=== PATIENT | male | born 1935 | race Caucasian/White ===

== ENCOUNTER 2016-05-28 10:20 | Inpatient (IN) | payer OTHER, MEDICARE ==
[~2016-05-28] VITALS: Ht 161.3 cm; Wt 80.3 kg
[~2016-05-28 10:20] MED LIST: FLEXERIL10 MG PO; NAPROSYN375 MG PO; PANTOPRAZOLE SO40 M1 PO; SPIRIVA18 MCG IH; VICODIN5-300 PO
[2016-05-28] MEDS ORDERED: CARDIZEM CD240 M1 PO (10:27)
[2016-05-28] MEDS ORDERED: XARELTO15 M2 PO (10:27)
[2016-05-28] MEDS ORDERED: FINASTERIDE5 M1 PO (10:27)
[2016-05-28] MEDS ORDERED: TAMSULOSIN HCL0.4 M1 PO (10:28)
[2016-05-28] MEDS ORDERED: ATORVASTATIN CA40 M1 PO (10:28)
--- NOTE | 2016-05-28 10:36 | NUR ---
BIBA FROM HOME S/P SYNCOPAL EPISODE WHILE SITTING AT TABLE HAVING BREAKFAST. ON EMS ARRIVAL PT WAS AWAKE, ALERT, SPEAKING CLEARLY. HX AFIB,CVA PT ARRIVES TO ED AWAKE, ALERT, ORIENTED, DENIES CHEST PAIN OR DIZZINESS. MST AT BEDSIDE FOR EKG.
--- NOTE | 2016-05-28 10:42 | ED SYNCOPE COMPLAINT ---
History of Present Illness General Chief Complaint: Syncope and Near-Syncope Stated Complaint: BIBA FOR SYNCOPE Source: patient, family Exam Limitations: no limitations Vital Signs & Intake/Output Vital Signs & Intake/Output Vital Signs Date Time Temp Pulse Resp B/P Pulse O2 O2 Flow FiO2 Ox Delivery Rate 06/01 0953 98.1 74 18 130/62 06/01 0933 74 130/62 06/01 0843 98.1 74 18 130/62 93 Room Air 06/01 0800 Room Air 06/01 0006 98.3 64 18 142/70 94 Room Air 06/01 0000 94 Room Air 05/31 2226 97.8 70 20 118/60 94 Room Air 05/31 1623 97.7 68 18 130/63 95 05/31 1414 Room Air Room Air 05/31 1304 Room Air Room Air ED Intake and Output 06/01 0000 05/31 1200 Intake Total 1620 200 Output Total 550 450 Balance 1070 -250 Intake, IV 0 Intake, Oral 1620 200 Number 0 Bowel Movements Output, Urine 550 450 Allergies Coded Allergies: NO KNOWN ALLERGIES (09/28/10) Triage Note: BIBA FROM HOME S/P SYNCOPAL EPISODE WHILE SITTING AT TABLE HAVING BREAKFAST. ON EMS ARRIVAL PT WAS AWAKE, ALERT, SPEAKING CLEARLY. HX AFIB,CVA PT ARRIVES TO ED AWAKE, ALERT, ORIENTED, DENIES CHEST PAIN OR DIZZINESS. MST AT BEDSIDE FOR EKG. Triage Nurses Notes Reviewed? yes HPI: This patient is an 81-year-old male with a past medical history including atrial fibrillation, COPD, and, "mini stroke," who presented to the emergency department today brought in by ambulance accompanied by family member for evaluation of syncope. The patient's family member reported that he was sitting at the table with his nephew eating breakfast when he passed out 2 times. She is unaware of how long these episodes lasted as she was not there at the time of the incident. He did not fall or hit his head. The patient reported, "it was like a kind of fell asleep." The patient reported that he is having a mild occipital headache on the right side. He reported that his vision has seemed more blurry than normal over the last day. The patient denied any chest pain, difficulty breathing, dizziness, lightheadedness, palpitations, abdominal pain, nausea, vomiting, back pain, numbness or tingling in his extremities, jaw pain, arm pain, or any other associated symptoms. (CHENTE DICKERSON PA-C) Reconcile Medications Atorvastatin Calcium 40 MG TABLET 1 TAB PO QPM CHOLESTEROL (Reported) Diltiazem HCl (Cardizem Cd) 360 MG CAP.ER.24H 1 CAP PO DAILY HEART Finasteride 5 MG TABLET 1 TAB PO QPM PROSTATE (Reported) Pantoprazole Sodium 40 MG TABLET.DR 1 PO 0800 ACID REFLUX (Reported) Rivaroxaban (Xarelto) 15 MG TABLET 1 TAB PO QPM BLOOD THINNER (Reported) Tamsulosin HCl 0.4 MG CAP.ER.24H 2 CAP PO DAILY PROSTATE (Reported) Tiotropium Stanley (Spiriva) 18 MCG CAP.W.DEV 1 MCG IH BID COPD (Reported) (MARCELA HAHN,GALLO) Past History Travel History Traveled to [place] past 21 day No Medical History Any Pertinent Medical History? 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 No (CHENTE DICKERSON PA-C) Review of Systems Review of Systems Constitutional: Reports: no symptoms. EENTM: Reports: see HPI. Respiratory: Reports: no symptoms. Cardiovascular: Reports: no symptoms. GI: Reports: no symptoms. Genitourinary: Reports: no symptoms. Musculoskeletal: Reports: no symptoms. Skin: Reports: no symptoms. Neurological/Psychological: Reports: see HPI. All Other Systems: Reviewed and Negative (CHENTE DICKERSON PA-C) Physical Exam Physical Exam Cranial Nerves: normal hearing, normal speech, PERRL Comments: Well-developed well-nourished person in no acute distress HEENT: Normal EENT exam, head is normocephalic/atraumatic, moist mucous membranes, no tenderness to palpation over the scalp PERRLA bilaterally Neck: Supple, no lymphadenopathy Back: Normal inspection Cardiovascular: Regular rate and rhythm with no murmurs, rubs, or gallops Respiratory: Chest nontender. No respiratory distress. Breath sounds clear to auscultation bilaterally Abdomen: Soft, nontender and nondistended. No organomegaly Extremity: No edema, no calf tenderness to palpation, normal and equal pulses. Neuro: Alert oriented x3, motor sensory normal, cranial nerves II through XII grossly intact. No aphasia. Mild left-sided facial droop at the mouth. No unilateral weakness. No pronator drift Skin: No appreciable rash on exposed skin, skin is warm and dry. Psych: Mood and affect is normal Core Measures ACS in differential dx? Yes CVA/TIA Diagnosis: No Severe Sepsis Present: No Septic Shock Present: No (TUAN CONWAY,CHENTE) Progress Differential Diagnosis: AMI, aortic dissection, aortic valve, drug induced syncope, hyperventilation, orthostatic syncope, other valvular disease, pericardial tamponade, pulmonary embolus, seizure, sick sinus syndrome, subarachnoid hem., TIA/CVA, ATRIAL FIBRILLATION Plan of Care: Orders Procedure Date/time Status Discharge Patient 06/01 UNK Active Anticipated Discharge 05/31 UNK Active Current Medications Sig/Vicki Start time Last Medication Dose Stop Time Status Admin Albuterol Sulfate 2 PUF Q4 PRN 05/31 2130 AC (Ventolin) Diagnostic Imaging: Viewed by Me: CT Scan. Discussed w/RAD: CT Scan. Radiology Impression: PATIENT: DOLLY WIGGINS PRESENT AGE: 81 PATIENT ACCOUNT NO: [id number] : 34 LOCATION: [facility] ORDERING PHYSICIAN: CHENTE DICKERSON PA-C SERVICE DATE: 05/28/16 EXAM TYPE: CAT - CT HEAD WO IV CONTRAST EXAMINATION: CT HEAD WITHOUT CONTRAST CLINICAL INFORMATION: Syncope. COMPARISON: 09/28/2010 TECHNIQUE: Contiguous axial imaging was performed from the skull base to vertex without intravenous administration of contrast. DLP: 610 mGy-cm. FINDINGS: There is atherosclerotic calcification of the vertebral arteries and carotid siphons. There is chronic atrophy of cerebral and cerebellar hemispheres associated with symmetric prominence of ventricles, sulci and cisterns. There is chronic, patchy hypoattenuation within supratentorial white matter consistent with microangiopathy. The schulz-white matter differentiation is preserved. No evidence of an acute major vascular territory infarction, hemorrhage, focal mass effect or midline shift. Incidentally noted is mucosal thickening within the inferior left maxillary sinus with probable mucus retention cyst along the anteroinferior sinus wall. There is minimal mucosal thickening along the medial wall of the right maxillary sinus. Some of the bilateral mastoid air cells are chronically opacified. The temporomandibular joints are unremarkable. The orbits and globes are intact. There is chondrocalcinosis around the dens. IMPRESSION: Chronic cerebral atrophy and chronic small vessel ischemic changes. No acute intracranial pathology compared to 09/28/2010. 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 <Electronically signed in Other Vendor System> SIGNED BY: VIRGIE LOPEZ MD 05/28/16 1152 Initial ED EKG: normal axis, normal intervals, normal sinus rhythm, no ST T wave changes, 98 BPM Comments: 05/28/2016 10:58:30 AM: The patient's family member at the bedside and reported that he has had some slurred speech that has been worsening recently. She reported that his left-sided facial droop has been persistent since his prior stroke. EKG taken on route to the emergency department showed atrial fibrillation. However, this patient is in normal sinus rhythm here in the emergency department. 05/28/2016 12:18:33 PM: According to this patient's RN, the patient's nephew was at the bedside earlier and reported that he did not slump over, or pass out at the table, but rather was staring blankly and was unresponsive. EMS also reported that he had another episode of staring blankly and unresponsiveness en route to the hospital. Prolactin is elevated to 20. This patient does not have a history of any seizure disorder. This could possibly be a new onset seizure. Discussed this patient with Dr. Rodriguez. This patient will be admitted to the hospital. Neurology has been paged. Officially signed out to Dr. Rodriguez for telemetry admission. 05/28/2016 1:40:46 PM: Discussed this patient with on-call neurologist, Dr. BUSTILLO. Is in agreement with the plan for a telemetry admission. Will consult on this patient. (TUAN CONWAY,CHENTE) Departure Departure Disposition: STILL A PATIENT Condition: Stable Clinical Impression Primary Impression: New onset seizure Referrals: KENDAL HAHN,DOLLY Montgomery (PCP/Family) Departure Forms: Customer Survey General Discharge Information Admission Note Spoke With: MARQUEZ OLIVAREZ MD Documentation of Exam: Documentation of any treatments & extenuating circumstances including Concerns Regarding Discharge (functional status, medication knowledge or non-compliance, living conditions, etc.) that warrant an admission rather than observation: [ This patient is an 81 year old male with a past medical history including atrial fibrillation and CVA who presented for evaluation of multiple episodes of unresponsiveness. Prolactin elevated to 20. Likely new onset seizure. He will need to be admitted to telemetry for MRI of the brain, EEG, trend labs, telemetry monitoring, neurology consultation, IV fluids, and close monitoring. Given this patient's age and medical history, premature discharge could prove medically harmful. This patieht is a poor candidate for outpatient treatment. ] (CHENTE DICKERSON PA-C) Departure Prescriptions: Current Visit Scripts Diltiazem HCl (Cardizem Cd) 1 CAP PO DAILY #30 CAP PA/CARPENTER'S HELPER Co-Sign Statement Statement: ED Attending supervision documentation- [x] I saw and evaluated the patient. I have also reviewed all the pertinent lab results and diagnostic results. I agree with the findings and the plan of care as documented in the PA's/CARPENTER'S HELPER's documentation. [x] I have reviewed the ED Record and agree with the PA's/CARPENTER'S HELPER's documentation. [] Additions or exceptions (if any) to the PAs/CARPENTER'S HELPER's note and plan are summarized below: [] (GALLO RODRIGUEZ MD) Given this patient's age and medical history, premature discharge could prove medically harmful. This patieht is a poor candidate for outpatient treatment. ] (CHENTE DICKERSON PA-C) PA/CARPENTER'S HELPER Co-Sign Statement Statement: ED Attending supervision documentation- [x] I saw and evaluated the patient. I have also reviewed all the pertinent lab results and diagnostic results. I agree with the findings and the plan of care as documented in the PA's/CARPENTER'S HELPER's documentation. [x] I have reviewed the ED Record and agree with the PA's/CARPENTER'S HELPER's documentation. [] Additions or exceptions (if any) to the PAs/CARPENTER'S HELPER's note and plan are summarized below: [] (GALLO RODRIGUEZ MD)
[2016-05-28 11:01] LABS: ABSOLUTE BASOPHIL COUNT 0 /CUMM (0.0-0.2); ABSOLUTE EOSINOPHIL COUNT 0 /CUMM (0.0-0.7); ABSOLUTE GRANULOCYTE CT 4.5 /CUMM (1.4-6.5); ABSOLUTE MONOCYTE COUNT 0.4 /CUMM (0.10-0.60); BASOPHIL % 0.3 % (0.0-2.0); EOSINOPHIL % 0.8 % (0-5); GRANULOCYTE % 75.9 % (42.2-75.2); HEMATOCRIT 36.1 % (42-52); MEAN CORPUSCULAR VOLUME 85.3 FL (80.0-94.0); MEAN PLATELET VOLUME 6.9 FL (7.4-10.4); PLATELET COUNT 170 /CUMM (130-400); RBC DISTRIBUTION WIDTH 15.2 % (11.5-14.5); RED BLOOD CELL CT 4.23 /CUMM (4.70-6.10); WHITE BLOOD CELL COUNT 5.9 /CUMM (4.8-10.8)
--- NOTE | 2016-05-28 11:07 | NUR ---
PT UNABLE TO VOID VIA URINAL AT PRESENT. IVF'S NS 1L BOLUS INFUSING ORDERED. GRAND DAUGHTER AT BEDSIDE.
[2016-05-28 11:15] LABS: PT 13.7 SEC (9.4-12.5); PTT 34 SEC (25-37)
--- NOTE | 2016-05-28 11:17 | NUR ---
PT TO CT VIA STRETCHER AT THIS TIME.
--- NOTE | 2016-05-28 11:52 | CT SCAN REPORT ---
EXAMINATION: CT HEAD WITHOUT CONTRAST CLINICAL INFORMATION: Syncope. COMPARISON: 09/28/2010 TECHNIQUE: Contiguous axial imaging was performed from the skull base to vertex without intravenous administration of contrast. DLP: 610 mGy-cm. FINDINGS: There is atherosclerotic calcification of the vertebral arteries and carotid siphons. There is chronic atrophy of cerebral and cerebellar hemispheres associated with symmetric prominence of ventricles, sulci and cisterns. There is chronic, patchy hypoattenuation within supratentorial white matter consistent with microangiopathy. The schulz-white matter differentiation is preserved. No evidence of an acute major vascular territory infarction, hemorrhage, focal mass effect or midline shift. Incidentally noted is mucosal thickening within the inferior left maxillary sinus with probable mucus retention cyst along the anteroinferior sinus wall. There is minimal mucosal thickening along the medial wall of the right maxillary sinus. Some of the bilateral mastoid air cells are chronically opacified. The temporomandibular joints are unremarkable. The orbits and globes are intact. There is chondrocalcinosis around the dens. IMPRESSION: Chronic cerebral atrophy and chronic small vessel ischemic changes. No acute intracranial pathology compared to 09/28/2010.
--- NOTE | 2016-05-28 12:58 | NUR ---
URINE TRIO SENT TO LAB
--- NOTE | 2016-05-28 13:33 | History & Physical ---
DARIAN HAHN,MANDA 05/28/16 1333: General Information and HPI Source of Information: patient, family, old records Exam Limitations: no limitations History of Present Illness: Patient is an 81 year old male with a past medical history of atrial fibrillation on Xeralto and cardizem now in NSR,HTN, HL, COPD not on home oxygen , Hx of CVA (2010) presented in emergency department for 2 episodes of witnessed syncope. According to him, there was periods of amnesia when he was taking his breakfast. He don't know exactly for how long they lasted, but he recovered fast. He denies of any loss of memory, weakness of any part of his body after this episode. According to the patient his cousin was there when he had these episodes.Cousin said that there was just episode of black out, denies any fall, trauma, unusal body movements. Patient Claims that he is having headaches since last 2 days, especially when he woke up in the morning.His daughter feels his speech become more slurred and his facial assymetry has been increased since last 1 week. Also, patient says that he is having more drooling of his saliva since last 1 week.He denies difficulty in swallowing. He denies of palpitation, body movements, changes in vision,fever, nausea, vomiting, chest pain, abdominal pain, incontinence of the urine and stool. He has PMH of stroke (2012), and Mini Stroke in 2013. Personal history -patient lives alone and able to do all his household activities. He denies smoking and using alcohol. He is compliant with his medication. His block making machine operator is Dr. Chan,and director of food and beverage services is Dr. Lou. Allergies/Medications Allergies: Coded Allergies: NO KNOWN ALLERGIES (09/28/10) Home Med list Atorvastatin Calcium 40 MG TABLET 1 TAB PO QPM CHOLESTEROL (Reported) Diltiazem HCl (Cardizem Cd) 240 MG CAP.ER.24H 1 CAP PO DAILY HEART (Reported) Finasteride 5 MG TABLET 1 TAB PO QPM PROSTATE (Reported) Pantoprazole Sodium 40 MG TABLET.DR 1 PO 0800 ACID REFLUX (Reported) Rivaroxaban (Xarelto) 15 MG TABLET 1 TAB PO QPM BLOOD THINNER (Reported) Tamsulosin HCl 0.4 MG CAP.ER.24H 2 CAP PO DAILY PROSTATE (Reported) Tiotropium [place] (Spiriva) 18 MCG CAP.W.DEV 1 MCG IH BID COPD (Reported) Past History Travel History Traveled to [place] past 21 day No Medical History Neurological: TIA EENT: NONE Cardiovascular: hypertension, hyperlipidemia Respiratory: COPD Gastrointestinal: NONE Hepatic: NONE Renal: ENLARGED PROSTATE Musculoskeletal: NONE Psychiatric: NONE Endocrine: NONE Blood Disorders: NONE Cancer(s): NONE [employer] 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 Cardiovascular: Denies: chest pain, edema, orthopena, palpitations, peripheral edema. Respiratory: Denies: cough, hemoptysis, orthopnea, short of breath, sputum production. GI: Denies: abdominal pain, bloating, constipation, diarrhea, distention. Genitourinary: Reports: nocturia. Denies: discharge, dysuria, frequency, hematuria. Musculoskeletal: Denies: back pain, gout, joint pain, joint swelling, muscle pain. Skin: Denies: no symptoms. Neurological/Psychological: Reports: headache, weakness. Denies: anxiety, ataxia. Exam & Diagnostic Data Last 24 Hrs of Vital Signs/I&O Vital Signs Date Time Temp Pulse Resp B/P Pulse O2 O2 Flow FiO2 Ox Delivery Rate 05/28 1038 97 Room Air Room Air 05/28 1037 97.1 97 20 119/59 97 Room Air Room Air Intake & Output 05/28 1600 05/28 0800 05/28 0000 Intake Total 1000 Output Total Balance 1000 Intake, IV 1000 Patient 80.286 kg Weight Physical Exam General Appearance Alert, Oriented X3, Cooperative, No Acute Distress Skin No Rashes, No Breakdown HEENT Atraumatic, PERRLA, EOMI Neck Supple, No JVD Cardiovascular Regular Rate, Normal S1, Normal S2 Lungs decrease air entry bilateraly, bilateral basilar crackles Abdomen Soft, distended, bowel soundes positive Neurological speech is slurred, strength is 5/5 on right upper limb and lower limb and 4 /5 on left upper limb and lower limb.there is facial asymmetry,left side Extremities No Clubbing, No Cyanosis, No Edema Vascular Normal Pulses, Pulses Symmetrical Assessment/Plan Assessment: Patient is an 81 year old male with a past medical history of atrial fibrillation on Xeralto and cardizem now in NSR,HTN, HL, COPD not on home oxygen , Hx of CVA,mini stroke, presented in emergency department for recurrent episodes of witnessed syncope. Vital signs at the time of admission - Temperature 97.1, pulse 97, respiration 20, blood pressure 119/59, pulse 97, SPO2 CT head 05/28/2016 Chronic cerebral atrophy and chronic small vessel ischemic changes.No acute intracranial pathology compared to 09/28/2010. Pertinent labs creatinine 1.4 Assessment and plan - Patient had episodes of loss of consciousness/syncope. He denies of any episodes of palpitations, headache , nausea , vomiting, blurry vision before syncope. She doesn't seems it is vasovagal. The patient having history of atrial fibrillation , was on Eliquis in need to rule out arrhythmia. So we will keep the patient in telemetry for observation of his heart rhythm. Patient is also having history of stroke and he is a also having risk factor for stroke including hypertension and hyperlipidemia, so that our chances he may have stroke which is supported by history given by the patients daughter that he is having increasing severity of speech difficulty and facial drooping. We will do MRI to rule out the stroke and place a neurological consult for further evaluation and management. Syncope Regions under evaluation (? Seizures ? arrythmias) * We will admit in the Telemetry * Neuro check every Q1 * We will place a consult for cardiology to rule out arrhythmia and neurologic to rule out any stroke/seizure * We will do echocardiogram to know the left ventricular function * We will do MRI brain to rule out stroke * Strict intake output charting * Orthostatic vitals every 24 * Vitals every shift * We will do bedside formal swallow evaluation. * We will also take the mobile number of the cousin to know the exact history in the detail as he witnessed to the episode * PT/OT/ST Atrial fibrillation on Xeralto * We will continue Xeralto COPD * We will continue Spiriva as before * We will keep the patient on oxygen with the target of SPO2 more than 92% * TRC/nebulization Hypertension * We'll continue Cardizem as before Hyperlipidemia * We will continue statins as before BPH - * We'll continue Flomax and finasteride Diet -heart healthy diet CODE STATUS -full code DVT prophylaxis-ALP S/Xeralto As Ranked By This Provider Problem List: 1. Syncope 2. Atrial fibrillation 3. COPD (chronic obstructive pulmonary disease) 4. Hypertension 5. Hyperlipidemia 6. BPH (benign prostatic hyperplasia) Core Measures/Miscellaneous Acute Coronary Syndrome ACS Diagnosis: No Cerebrovascular Accident CVA/TIA Diagnosis: No Congestive Heart Failure CHF Diagnosis: No Venous Thromboembolism VTE Risk Factors: Age > 40 VTE Prophylaxis Ordered Inpt: Pharm- Xarelto No Mech VTE prophylaxis d/t: No contraindications No VTE Pharm Prophylaxis d/t: No contraindications VTE Diagnosis: No VTE Type: NONE VTE Confirmed by (Test): NONE Severe Sepsis Severe Sepsis Present: No Septic Shock Septic Shock Present: No Miscellaneous Documentation Attending Case Discussed With: JADA HAHN,MARINE Valiente Primary Care Physician: DOLLY EDMONDS MD Patient sees these Specialists Assistant Manager/Embalmer Level of Patient Care: Telemetry JARROD HAHN,LENCHO 05/28/16 1445: Resident Review Statement Resident Statement: examined this patient, discussed with administration intern, agreed with administration intern Other Findings: 81 year old male with a PMH of Afib on Xarelto, 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 These were witnessed by a cousin, who could not be reached. No reports of involuntary movements, staring into space, loss of bowel or bladder control, confusion or weakness after the episode. No similar episodes in the past. No recent infections, abdominal pain, bowel or bladder issues. Per daughter, his speech was more slurred and his facial droop was more pronounced than baseline. Physical Exam: Revealed a left sided facial droop with preserved motor strength and sensation. Vitals: WNL, EKG showed NSR at 86 bpm. Labs: Showed elevated creatinine 1.4 (b/l 1.2-1.5), Prolactin: 20.5, U/A: WNL Assessment: 81 y/o male with a PMH of 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 No urinary or bowel incontinence, involuntary movements, frothing, weakness or confusion noted. This is possibly secondary to arrhythmia considering no aura or post ictal events. He does have a more pronounced facial droop per family along with increased slurring of speech. Ischemic stroke will have to ruled out considering his history of CVA in the past. Also to consider, would be compliance with medications, as this episode, if a stroke, has occured on Xarelto. Problem List: * Syncope 2/2 arrhythmia vs ?? seizure * R/O Stroke considering increased slurring of speech and facial droop * Atrial Fibrillation on Cardizem and Xarelto * COPD not on home oxygen * BPH of Flomax and Finasteride * Hypertension * Hyperlipidemia on Atorvastatin Plan: * Admit to telemetry * Check orthostatics * Seizure precautions * MRI to r/o ischemic stroke * ECHO * Cardiology consult for arrhythmia * Neurology consult for possible seizures. * Continue other home medications. * DVT PPx: Xarelto * Code Status: Full Code * Pain Pathway: Tylenol PRN. JADA HAHN,MARINE 05/28/16 1540: Attending MD Review Statement Attending Statement Attending MD Statement: examined this patient, discuss w/resident/PA/RATE SETTER, agreed w/resident/PA/RATE SETTER, reviewed EMR data (avail), discussed with nursing, discussed with case mgmt Attending Assessment/Plan: 81-year-old male with past medical history of COPD, hypertension, BPH and A. fib on Xarelto. He is here with episodes of syncope of unclear etiology. I'm not convinced that the seizure as there is no history of confusion, postictal stage, incontinence and his prolactin is very borderline. Obviously a stroke is in the differential and will get an MRI because if he has a stroke on Xarelto we have have to consider him a Xarelto failure and probably switch him to Coumadin. We' ll get an echocardiogram and talk to his block making machine operator about the most recent echo. Continue his Cardizem and Xarelto, continue his BPH meds, check orthostasis and neurology eval.
--- NOTE | 2016-05-28 14:31 | NUR ---
LABS DRAWN AND SENT MINOR
--- NOTE | 2016-05-28 14:45 | NUR ---
PT TO MRI VIA STRETCHER AT THIS TIME. REPORT CALLED TO TELE NURSE
--- NOTE | 2016-05-28 15:40 | Admission Certification ---
Admission Certification Certification Statement - As attending physician, I certify that at the time of - admission, based on clinical presentation, severity of - symptoms, need for further diagnostic testing and - therapeutic interventions, and risk of adverse outcomes - without in-hospital treatment, in my clinical assessment, - this patient requires an acute hospital stay for a minimum - of two nights or longer. I have also considered psychsocial - factors such as support system, advanced age, financial - issues, cognitive issues, and failed out-patient treatments, - past re-admission history, safety of patient, and lack of - compliance as applicable. Specific rationale supporting this admission is: Syncope versus seizure in patient with A. fib on Xarelto.
--- NOTE | 2016-05-28 17:09 | MRI REPORT ---
EXAMINATION: MR BRAIN WITHOUT CONTRAST CLINICAL INFORMATION: Worsening baseline facial droop and increased slurring. COMPARISON: CT scan of the head 05/28/2016. TECHNIQUE: MRI of the brain without contrast was obtained using routine sequences. FINDINGS: There are numerous foci of T2 FLAIR signal hyperintensity throughout the periventricular white matter and koffi that most likely represent a chronic manifestation of small vessel ischemia. There is no acute territorial infarct. There is magnetic susceptibility artifact within the subcortical white matter of the right frontal lobe along the expected course of an old right frontal lobe catheter tract. Intracranial vascular flow voids including the major dural venous sinuses are preserved. There is no intracranial mass effect or midline shift. No abnormal extra axial collection. Lateral and third ventricles are prominent and there is proportionate prominence of the subarachnoid spaces reflecting a mild degree of global parenchymal volume loss. Midline structures including the cervicomedullary junction are normal. Bone marrow signal intensity is normal. Old rola holes within both parietal bones are noted. There is a small left mastoid tip effusion and mild paranasal sinus disease primarily affecting the ethmoid air cells and left maxillary sinus. Globes and orbits are symmetric. IMPRESSION: There is mild global parenchymal volume loss and numerous chronic small vessel ischemic changes throughout the periventricular white matter and koffi. No evidence of acute territorial infarct or hemorrhage.
[2016-05-28 17:30] VITALS: BP 176/84
[2016-05-28 23:48] VITALS: BP 130/84
--- NOTE | 2016-05-29 07:55 | PN- Housestaff ---
HORACIO HAHN,[facility] 05/29/16 0755: Subjective Follow-up For: Syncope Subjective: Patient seen and examined. He was lying comfortably in bed in no acute distress , he did not have any complaints of dizziness, chest pain, palpitation. He is afebrile, other vitals within normal limits. Review of Systems Constitutional: Reports: see HPI. Objective Last 24 Hrs of Vital Signs/I&O Vital Signs Date Time Temp Pulse Resp B/P Pulse O2 O2 Flow FiO2 Ox Delivery Rate 05/29 1031 118/58 05/29 0845 97.7 68 16 118/58 95 Room Air 05/29 0000 96 Room Air 05/28 2348 97.6 85 20 130/84 95 Room Air 05/28 1930 Room Air 05/28 1730 97.5 79 20 176/84 96 Room Air Intake & Output 05/29 1600 05/29 0800 05/29 0000 Intake Total 100 610 Output Total 400 300 Balance -300 310 Intake, IV 10 Intake, Oral 100 600 Output, Urine 400 300 Patient 80.286 kg Weight Physical Exam General Appearance: Alert, Oriented X3, Cooperative Cardiovascular: Regular Rate, Normal S1, Normal S2 Lungs: decrease air entry bilaterally. Abdomen: Normal Bowel Sounds, Soft, No Tenderness Neurological: slurred speech, left-sided facial asymmetry home a strength in both upper and lower extremities 5 out 5. Extremities: No Clubbing, No Cyanosis, No Edema Current Medications: Current Medications Sig/Vicki Start time Last Medication Dose Route Stop Time Status Admin Acetaminophen 650 MG Q6P PRN 05/28 1430 AC 05/28 PO 1916 Atorvastatin Calcium 40 MG QPM 05/28 2200 AC 05/28 PO 2050 Diltiazem HCl 240 MG DAILY 05/28 1430 AC 05/29 PO 1031 Finasteride 5 MG QPM 05/28 2200 AC 05/28 PO 2050 Rivaroxaban 15 MG QPM 05/28 2200 AC 05/28 PO 205 Sodium Chloride 1,000 ML BOLUS ONE 05/28 1045 DC 05/28 IV 05/28 1244 1054 Tamsulosin HCl 0.8 MG DAILY 05/29 1000 AC 05/29 PO 1031 Tiotropium [place] 1 PUF BID 05/28 2200 AC 05/29 INH 1030 Last 24 Hrs of Lab/Keanu Results Last 24 Hrs of Labs/Mics: Laboratory Tests 05/29/16 0730: Anion Gap 9, Estimated GFR > 60, BUN/Creatinine Ratio 23.6, CBC w Diff NO MAN DIFF REQ, RBC 3.85 L, MCV 87.0, MCH 29.2, RDW 15.2 H, MPV 7.5, Gran % 62.3, Lymphocytes % 27.0, Monocytes % 8.6, Eosinophils % 1.6, Basophils % 0.5, Absolute Granulocytes 4.2, Absolute Lymphocytes 1.8, Absolute Monocytes 0.6, Absolute Eosinophils 0.1, Absolute Basophils 0, PUBS MCHC 33.5 05/28/16 1430: Lactic Acid 0.9 05/28/16 1256: Urine Color YEL, Urine Clarity CLEAR, Urine pH 6.0, Ur Specific [place] 1.020, Urine Protein NEG, Urine Ketones NEG, Urine Nitrite NEG, Urine Bilirubin NEG, Urine Urobilinogen 0.2, Ur Leukocyte Esterase NEG, Ur Microscopic EXAM NOT REQUIRED, Urine Hemoglobin NEG, Urine Glucose NEG Microbiology 05/28 1256 URINE ROUT: Urine Culture - RES Assessment/Plan Assessment: 81 y/o male with a PMH of 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 No urinary or bowel incontinence, involuntary movements, frothing, weakness or confusion noted. This is possibly secondary to arrhythmia considering no aura or post ictal events. He does have a more pronounced facial droop per family along with increased slurring of speech. Ischemic stroke will have to ruled out considering his history of CVA in the past. Also to consider, would be compliance with medications, as this episode, if a stroke, has occured on Xarelto. Problem List: * Syncope 2/2 arrhythmia vs ?? seizure * R/O Stroke considering increased slurring of speech and facial droop * Atrial Fibrillation on Cardizem and Xarelto * COPD not on home oxygen * BPH of Flomax and Finasteride * Hypertension * Hyperlipidemia on Atorvastatin Plan: * Continuous. Monitoring for any arrhythmias * orthostatics positive * Seizure precautions * MRI not show any acute intracranial pathology * ECHO pending * Cardiology consult for arrhythmia, will follow-up with medications. * Neurology consult for possible seizures, will follow-up with medications. * Continue other home medications. * DVT PPx: Xarelto * Code Status: Full Code * Pain Pathway: Tylenol PRN. Problem List: 1. Hyperlipidemia 2. Hypertension 3. COPD (chronic obstructive pulmonary disease) 4. Syncope 5. Atrial fibrillation Pain Ratin Pain Location: none Pain Goal: Remain pain free Pain Plan: Tylenol Tomorrow's Labs & Rationales: cBC for WBC monitoring BeP creatinine monitoring. MARQUEZ OLIVAREZ MD 05/29/16 1531: Attending MD Review Statement Attending Statement Attending MD Statement: examined this patient, discuss w/resident/PA/ACC[employer], agreed w/resident/PA/[employer], reviewed EMR data (avail) Attending Assessment/Plan: Admitted for witnessed syncope x2. Patient has no complaints today and feels well. He had no problem rising from a seated position and denies lightheadedness, chest pain, or palpitations. No tele events. MRI negative. Will follow up neurology and cardiology recommendations, follow up echocardiogram and telemetry, possible EEG Tuesday, PT eval, DVT PPx, continue home medications.
[2016-05-29 08:45] VITALS: BP 118/58
[2016-05-29 09:16] LABS: ABSOLUTE BASOPHIL COUNT 0 /CUMM (0.0-0.2); ABSOLUTE EOSINOPHIL COUNT 0.1 /CUMM (0.0-0.7); ABSOLUTE GRANULOCYTE CT 4.2 /CUMM (1.4-6.5); ABSOLUTE LYMPH COUNT 1.8 /CUMM (1.2-3.4); ABSOLUTE MONOCYTE COUNT 0.6 /CUMM (0.10-0.60); BASOPHIL % 0.5 % (0.0-2.0); EOSINOPHIL % 1.6 % (0-5); GRANULOCYTE % 62.3 % (42.2-75.2); HEMATOCRIT 33.5 % (42-52); MEAN CORPUSCULAR HGB 29.2 PG (27.0-31.0); MEAN CORPUSCULAR HGB CONC 33.5 G/DL (33.0-37.0); MEAN PLATELET VOLUME 7.5 FL (7.4-10.4); PLATELET COUNT 168 /CUMM (130-400); RBC DISTRIBUTION WIDTH 15.2 % (11.5-14.5); RED BLOOD CELL CT 3.85 /CUMM (4.70-6.10); WHITE BLOOD CELL COUNT 6.7 /CUMM (4.8-10.8)
--- NOTE | 2016-05-29 13:41 | Cons- Cardiology ---
General Information and HPI Consulting Request Date of Consult: 05/29/16 Requested By: MARINE ELIAS MD Reason for Consult: Loss of consciousness, syncope versus seizure Source of Information: patient, old records Exam Limitations: no limitations History of Present Illness: The patient is an 81-year-old male. He has a past medical history of atrial fibrillation, on anticoagulant therapy. He has been in sinus rhythm. He also has a history of hypertension, hyperlipidemia, COPD, and a prior stroke in the past. The patient is now admitted to the hospital. The emergency room after 2- 3 episodes of witnessed syncope. According to the patient, he does not recall the episodes. However, his cousin was apparently there are during the episodes and notes that the patient transiently blacked out with no evidence of any fall, trauma, or unusual body activity to suggest seizures. The patient apparently also notes a history of recent headaches over the last several days. Per the records, the patient's daughter also apparently noted some slurred speech and facial asymmetry over the last week. The patient denies any other cardiovascular symptoms. He denies any palpitations, dizziness, chest pain or shortness of breath. Allergies/Medications Allergies: Coded Allergies: NO KNOWN ALLERGIES (09/28/10) Home Med List: Atorvastatin Calcium 40 MG TABLET 1 TAB PO QPM CHOLESTEROL (Reported) Diltiazem HCl (Cardizem Cd) 240 MG CAP.ER.24H 1 CAP PO DAILY HEART (Reported) Finasteride 5 MG TABLET 1 TAB PO QPM PROSTATE (Reported) Pantoprazole Sodium 40 MG TABLET.DR 1 PO 0800 ACID REFLUX (Reported) Rivaroxaban (Xarelto) 15 MG TABLET 1 TAB PO QPM BLOOD THINNER (Reported) Tamsulosin HCl 0.4 MG CAP.ER.24H 2 CAP PO DAILY PROSTATE (Reported) Tiotropium [place] (Spiriva) 18 MCG CAP.W.DEV 1 MCG IH BID COPD (Reported) Current Medications: Current Medications Sig/Vicki Start time Last Medication Dose Route Stop Time Status Admin Acetaminophen 650 MG Q6P PRN 05/28 1430 AC 05/28 PO 191 Atorvastatin Calcium 40 MG QPM 05/280 AC 05/28 PO 2050 Diltiazem HCl 240 MG DAILY 05/28 1430 AC 05/29 PO 103 Finasteride 5 MG QPM 05/28 2199 AC 05/28 PO 2051 Rivaroxaban 15 MG QPM 05/28 2199 AC 05/28 PO 2050 Tamsulosin HCl 0.8 MG DAILY 05/29 1000 AC 05/29 PO 1031 Tiotropium [place] 1 PUF BID 05/28 2199 AC 05/29 INH 1030 Past History Travel History Traveled to [place] past 21 day No Medical History Blood Transfusion Hx: No Neurological: TIA, BRAIN DETATCHED FROM [facility] EENT: NONE Cardiovascular: AFIB, hypertension, hyperlipidemia Respiratory: COPD Gastrointestinal: NONE Hepatic: NONE Renal: ENLARGED PROSTATE Musculoskeletal: NONE Psychiatric: NONE Endocrine: NONE Blood Disorders: NONE Cancer(s): 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 Home Services at Home: None Smoking Status: Former Smoker ETOH Use: denies use Illicit Drug Use: denies illicit drug use ECHO Results (as available) Date of last Echo 08/06/13 EF% 60 Report: CONCLUSIONS Normal left ventricular ejection fraction estimated at 55-60%. Abnormal relaxation filling pattern of the left ventricle for age (stage 1 diastolic dysfunction). Diffuse thickening (sclerosis) of the aortic valve cusps without reduced excursion. Trace to mild tricuspid regurgitation. RVSP 30-40 mmHg. Exam & Diagnostic Data Vital Signs and I&O Vital Signs Date Time Temp Pulse Resp B/P Pulse O2 O2 Flow FiO2 Ox Delivery Rate 05/29 1031 118/58 05/29 0845 97.7 68 16 118/58 95 Room Air 05/29 0000 96 Room Air 05/28 2348 97.6 85 20 130/84 95 Room Air 05/28 1930 Room Air 05/28 1730 97.5 79 20 176/84 96 Room Air Intake & Output 05/29 1600 05/29 0800 05/29 0000 05/28 1600 05/28 0800 05/28 0000 Intake Total 585 954 5511 Output Total 400 300 Balance -949 463 0204 Intake, IV 10 1000 Intake, Oral 100 600 Output, Urine 400 300 Patient 177 lb 177 lb Weight Physical Exam: General Appearance Alert, Oriented X3, Cooperative, No Acute Distress, vital signs stable Skin normal HEENT normal Neck Supple, JVP normal, carotid upstroke 2+ bilaterally. No bruits. No masses. No thyromegaly. Cardiovascular Regular Rate, Normal S1, Normal S2 1/6 systolic murmur left sternal border Lungs scattered bilateral rhonchi Abdomen Soft, distended, bowel soundes positive Neurological slight left facial asymmetry, otherwise grossly nonfocal. Extremities No Clubbing, No Cyanosis, No Edema Vascular Normal Pulses, Pulses Symmetrical Labs/Keanu Results: Laboratory Tests 05/29 05/28 0730 1430 Chemistry Sodium (137 - 145 mmol/L) 141 Potassium (3.5 - 5.1 mmol/L) 4.0 Chloride (98 - 107 mmol/L) 106 Carbon Dioxide (22 - 30 mmol/L) 25 Anion Gap (5 - 16) 9 BUN (9 - 20 mg/dL) 26 H Creatinine (0.7 - 1.2 mg/dL) 1.1 Estimated GFR (>60 ml/min) > 60 BUN/Creatinine Ratio (7 - 25 %) 23.6 Lactic Acid (0.7 - 2.1 mmol/L) 0.9 Hematology CBC w Diff NO MAN DIFF REQ WBC (4.8 - 10.8 /CUMM) 6.7 RBC (4.70 - 6.10 /CUMM) 3.85 L Hgb (14.0 - 18.0 G/DL) 11.2 L Hct (42 - 52 %) 33.5 L MCV (80.0 - 94.0 FL) 87.0 MCH (27.0 - 31.0 PG) 29.2 RDW (11.5 - 14.5 %) 15.2 H Plt Count (130 - 400 /CUMM) 168 MPV (7.4 - 10.4 FL) 7.5 Gran % (42.2 - 75.2 %) 62.3 Lymphocytes % (20.5 - 51.1 %) 27.0 Monocytes % (1.7 - 9.3 %) 8.6 Eosinophils % (0 - 5 %) 1.6 Basophils % (0.0 - 2.0 %) 0.5 Absolute Granulocytes (1.4 - 6.5 /CUMM) 4.2 Absolute Lymphocytes (1.2 - 3.4 /CUMM) 1.8 Absolute Monocytes (0.10 - 0.60 /CUMM) 0.6 Absolute Eosinophils (0.0 - 0.7 /CUMM) 0.1 Absolute Basophils (0.0 - 0.2 /CUMM) 0 PUBS MCHC (33.0 - 37.0 G/DL) 33.5 05/28 05/28 1256 1055 Chemistry Sodium (137 - 145 mmol/L) 140 Potassium (3.5 - 5.1 mmol/L) 4.1 Chloride (98 - 107 mmol/L) 102 Carbon Dioxide (22 - 30 mmol/L) 26 Anion Gap (5 - 16) 11 BUN (9 - 20 mg/dL) 35 H Creatinine (0.7 - 1.2 mg/dL) 1.4 H Estimated GFR (>60 ml/min) 49 L BUN/Creatinine Ratio (7 - 25 %) 25.0 Glucose (65 - 99 mg/dL) 125 H Lactic Acid (0.7 - 2.1 mmol/L) 1.4 Calcium (8.4 - 10.2 mg/dL) 9.4 Total Bilirubin (0.2 - 1.3 mg/dL) 0.5 AST (17 - 59 U/L) 22 ALT (21 - 72 U/L) 25 Alkaline Phosphatase (< 127 U/L) 78 Troponin I (<0.11 ng/ml) 0.02 Total Protein (6.3 - 8.2 g/dL) 6.2 L Albumin (3.5 - 5.0 g/dL) 3.7 Globulin (1.9 - 4.2 gm/dL) 2.5 Albumin/Globulin Ratio (1.1 - 2.2 %) 1.5 Prolactin (3.7 - 17.9 ng/mL) 20.5 H Coagulation PT (9.4 - 12.5 SEC) 13.7 H INR (0.90 - 1.17) 1.31 H APTT (25 - 37 SEC) 34 Hematology CBC w Diff NO MAN DIFF REQ WBC (4.8 - 10.8 /CUMM) 5.9 RBC (4.70 - 6.10 /CUMM) 4.23 L Hgb (14.0 - 18.0 G/DL) 12.3 L Hct (42 - 52 %) 36.1 L MCV (80.0 - 94.0 FL) 85.3 MCH (27.0 - 31.0 PG) 29.0 RDW (11.5 - 14.5 %) 15.2 H Plt Count (130 - 400 /CUMM) 170 MPV (7.4 - 10.4 FL) 6.9 L Gran % (42.2 - 75.2 %) 75.9 H Lymphocytes % (20.5 - 51.1 %) 17.0 L Monocytes % (1.7 - 9.3 %) 6.0 Eosinophils % (0 - 5 %) 0.8 Basophils % (0.0 - 2.0 %) 0.3 Absolute Granulocytes (1.4 - 6.5 /CUMM) 4.5 Absolute Lymphocytes (1.2 - 3.4 /CUMM) 1.0 L Absolute Monocytes (0.10 - 0.60 /CUMM) 0.4 Absolute Eosinophils (0.0 - 0.7 /CUMM) 0 Absolute Basophils (0.0 - 0.2 /CUMM) 0 PUBS MCHC (33.0 - 37.0 G/DL) 34.0 Urines Urine Color (YEL,AMB,STR) YEL Urine Clarity (CLEAR) CLEAR Urine pH (5.0 - 8.0) 6.0 Ur Specific [place] (1.001 - 1.035) 1.020 Urine Protein (NEG,<30 MG/DL) NEG Urine Ketones (NEG) NEG Urine Nitrite (NEG) NEG Urine Bilirubin (NEG) NEG Urine Urobilinogen (0.1 - 1.0 EU/dl) 0.2 Ur Leukocyte Esterase (NEG) NEG Ur Microscopic EXAM NOT REQUIRED Urine Hemoglobin (NEG) NEG Urine Glucose (N MG/DL) NEG Diagnostic Data Other Results MRI head: IMPRESSION: There is mild global parenchymal volume loss and numerous chronic small vessel ischemic changes throughout the periventricular white matter and koffi. No evidence of acute territorial infarct or hemorrhage. Assessment/Plan Assessment/Plan Assessment: 1. Several episodes of loss of consciousness; syncope versus seizure-by available history, there was no overt evidence of gross seizure activity. Possibilities would include: Orthostasis with associated syncope, vasovagal episodes with associated syncope, occult seizure activity, occult arrhythmias precipitating loss of consciousness 2. Paroxysmal atrial fibrillation on anticoagulant therapy 3. History of hypertension 4. Chronic obstructive pulmonary disease 5. Recent onset of headaches 6. Prior history of stroke/TIA. Recommendations: -Maintain patient on telemetry monitoring for the next 24-48 hours -Neurology input pending -Echocardiogram pending -Maintain present anticoagulation regimen -Continue current medications -Please check orthostatic heart rate and blood pressure every shift 3 -If stable, please ambulate the patient with monitoring of blood pressure, heart rate, oxygen saturation saturations, etc. -Possible eventual consideration for long-term event monitoring -Further plans after the above Consult Acknowledgment - Thank you for your consult request.
--- NOTE | 2016-05-29 14:09 | Cons- Neurology ---
General Information and HPI Consulting Request Date of Consult: 05/29/16 Requested By: MARINE ELIAS MD Reason for Consult: Syncope vs sz Source of Information: patient History of Present Illness: The patient is an 81 year old male with a past medical history of atrial fibrillation on Xeralto and cardizem now in NSR,HTN, HL, COPD not on home oxygen , Hx of CVA (2010) presented in emergency department for 2 episodes of witnessed syncope. He don't know exactly for how long they lasted, but he recovered fast. He denies of any loss of memory, weakness of any part of his body after this episode. no urine/bowel incontinence. no tongue bite. According to the patient his cousin was there when he had these episodes.Cousin said that there was just episode of black out, denies any fall, trauma, unusal body movements. Allergies/Medications Allergies: Coded Allergies: NO KNOWN ALLERGIES (09/28/10) Home Med List: Atorvastatin Calcium 40 MG TABLET 1 TAB PO QPM CHOLESTEROL (Reported) Diltiazem HCl (Cardizem Cd) 240 MG CAP.ER.24H 1 CAP PO DAILY HEART (Reported) Finasteride 5 MG TABLET 1 TAB PO QPM PROSTATE (Reported) Pantoprazole Sodium 40 MG TABLET.DR 1 PO 0800 ACID REFLUX (Reported) Rivaroxaban (Xarelto) 15 MG TABLET 1 TAB PO QPM BLOOD THINNER (Reported) Tamsulosin HCl 0.4 MG CAP.ER.24H 2 CAP PO DAILY PROSTATE (Reported) Tiotropium [place] (Spiriva) 18 MCG CAP.W.DEV 1 MCG IH BID COPD (Reported) Current Medications: Current Medications Sig/Vicki Start time Last Medication Dose Route Stop Time Status Admin Acetaminophen 650 MG Q6P PRN 05/28 1430 AC 05/28 PO 1916 Atorvastatin Calcium 40 MG QPM 05/28 2200 AC 05/28 PO 2050 Diltiazem HCl 240 MG DAILY 05/28 1430 AC 05/29 PO 103 Finasteride 5 MG QPM 05/28 2200 AC 05/28 PO 2050 Rivaroxaban 15 MG QPM 05/28 2200 AC 05/28 PO 2049 Tamsulosin HCl 0.8 MG DAILY 05/29 1000 AC 05/29 PO 1031 Tiotropium [place] 1 PUF BID 05/28 2200 AC 05/29 INH 1030 Review of Systems Review of Systems: 10 point ROS was unremarkable except as noted as above Past History Travel History Traveled to [place] past 21 day No Medical History Blood Transfusion Hx: No Neurological: TIA, BRAIN DETATCHED FROM 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 Home Services at Home: None Smoking Status: Former Smoker ETOH Use: denies use Illicit Drug Use: denies illicit drug use ECHO Results (as available) Date of last Echo 08/06/13 EF% 60 Exam & Diagnostic Data Vital Signs and I&O Vital Signs Date Time Temp Pulse Resp B/P Pulse O2 O2 Flow FiO2 Ox Delivery Rate 05/29 1031 118/58 05/29 0845 97.7 68 16 118/58 95 Room Air 05/29 0000 96 Room Air 05/28 2348 97.6 85 20 130/84 95 Room Air 05/28 1930 Room Air 05/28 1730 97.5 79 20 176/84 96 Room Air Intake & Output 05/29 1600 05/29 0800 05/29 0000 Intake Total 100 610 Output Total 400 300 Balance -300 310 Intake, IV 10 Intake, Oral 100 600 Output, Urine 400 300 Patient 80.286 kg Weight Physical Exam: NAD A&Ox4, able to follow simple and complex commands, no dysarthria Pupils are 3mm jeronimo, no forced gaze deviation, no ptosis, ophthalmoparesis or nystagmus CN 2- 12 intact Motor: normal bulk/tone, no drift, 5/5 t/o Neg cla No clonus Downgoing toes Sensation intact t/o Last 48 Hours of Lab Results: Laboratory Tests 05/29 05/28 0730 1430 Chemistry Sodium (137 - 145 mmol/L) 141 Potassium (3.5 - 5.1 mmol/L) 4.0 Chloride (98 - 107 mmol/L) 106 Carbon Dioxide (22 - 30 mmol/L) 25 Anion Gap (5 - 16) 9 BUN (9 - 20 mg/dL) 26 H Creatinine (0.7 - 1.2 mg/dL) 1.1 Estimated GFR (>60 ml/min) > 60 BUN/Creatinine Ratio (7 - 25 %) 23.6 Lactic Acid (0.7 - 2.1 mmol/L) 0.9 Hematology CBC w Diff NO MAN DIFF REQ WBC (4.8 - 10.8 /CUMM) 6.7 RBC (4.70 - 6.10 /CUMM) 3.85 L Hgb (14.0 - 18.0 G/DL) 11.2 L Hct (42 - 52 %) 33.5 L MCV (80.0 - 94.0 FL) 87.0 MCH (27.0 - 31.0 PG) 29.2 RDW (11.5 - 14.5 %) 15.2 H Plt Count (130 - 400 /CUMM) 168 MPV (7.4 - 10.4 FL) 7.5 Gran % (42.2 - 75.2 %) 62.3 Lymphocytes % (20.5 - 51.1 %) 27.0 Monocytes % (1.7 - 9.3 %) 8.6 Eosinophils % (0 - 5 %) 1.6 Basophils % (0.0 - 2.0 %) 0.5 Absolute Granulocytes (1.4 - 6.5 /CUMM) 4.2 Absolute Lymphocytes (1.2 - 3.4 /CUMM) 1.8 Absolute Monocytes (0.10 - 0.60 /CUMM) 0.6 Absolute Eosinophils (0.0 - 0.7 /CUMM) 0.1 Absolute Basophils (0.0 - 0.2 /CUMM) 0 PUBS MCHC (33.0 - 37.0 G/DL) 33.5 05/28 05/28 1256 1055 Chemistry Sodium (137 - 145 mmol/L) 140 Potassium (3.5 - 5.1 mmol/L) 4.1 Chloride (98 - 107 mmol/L) 102 Carbon Dioxide (22 - 30 mmol/L) 26 Anion Gap (5 - 16) 11 BUN (9 - 20 mg/dL) 35 H Creatinine (0.7 - 1.2 mg/dL) 1.4 H Estimated GFR (>60 ml/min) 49 L BUN/Creatinine Ratio (7 - 25 %) 25.0 Glucose (65 - 99 mg/dL) 125 H Lactic Acid (0.7 - 2.1 mmol/L) 1.4 Calcium (8.4 - 10.2 mg/dL) 9.4 Total Bilirubin (0.2 - 1.3 mg/dL) 0.5 AST (17 - 59 U/L) 22 ALT (21 - 72 U/L) 25 Alkaline Phosphatase (< 127 U/L) 78 Troponin I (<0.11 ng/ml) 0.02 Total Protein (6.3 - 8.2 g/dL) 6.2 L Albumin (3.5 - 5.0 g/dL) 3.7 Globulin (1.9 - 4.2 gm/dL) 2.5 Albumin/Globulin Ratio (1.1 - 2.2 %) 1.5 Prolactin (3.7 - 17.9 ng/mL) 20.5 H Coagulation PT (9.4 - 12.5 SEC) 13.7 H INR (0.90 - 1.17) 1.31 H APTT (25 - 37 SEC) 34 Hematology CBC w Diff NO MAN DIFF REQ WBC (4.8 - 10.8 /CUMM) 5.9 RBC (4.70 - 6.10 /CUMM) 4.23 L Hgb (14.0 - 18.0 G/DL) 12.3 L Hct (42 - 52 %) 36.1 L MCV (80.0 - 94.0 FL) 85.3 MCH (27.0 - 31.0 PG) 29.0 RDW (11.5 - 14.5 %) 15.2 H Plt Count (130 - 400 /CUMM) 170 MPV (7.4 - 10.4 FL) 6.9 L Gran % (42.2 - 75.2 %) 75.9 H Lymphocytes % (20.5 - 51.1 %) 17.0 L Monocytes % (1.7 - 9.3 %) 6.0 Eosinophils % (0 - 5 %) 0.8 Basophils % (0.0 - 2.0 %) 0.3 Absolute Granulocytes (1.4 - 6.5 /CUMM) 4.5 Absolute Lymphocytes (1.2 - 3.4 /CUMM) 1.0 L Absolute Monocytes (0.10 - 0.60 /CUMM) 0.4 Absolute Eosinophils (0.0 - 0.7 /CUMM) 0 Absolute Basophils (0.0 - 0.2 /CUMM) 0 PUBS MCHC (33.0 - 37.0 G/DL) 34.0 Urines Urine Color (YEL,AMB,STR) YEL Urine Clarity (CLEAR) CLEAR Urine pH (5.0 - 8.0) 6.0 Ur Specific [place] (1.001 - 1.035) 1.020 Urine Protein (NEG,<30 MG/DL) NEG Urine Ketones (NEG) NEG Urine Nitrite (NEG) NEG Urine Bilirubin (NEG) NEG Urine Urobilinogen (0.1 - 1.0 EU/dl) 0.2 Ur Leukocyte Esterase (NEG) NEG Ur Microscopic EXAM NOT REQUIRED Urine Hemoglobin (NEG) NEG Urine Glucose (N MG/DL) NEG Imaging/Other Studies: MRI brain: There is mild global parenchymal volume loss and numerous chronic small vessel ischemic changes throughout the periventricular white matter and koffi. No evidence of acute territorial infarct or hemorrhage. Assessment/Plan Assessment: The patient is an 81 year old male with a past medical history of atrial fibrillation on Xeralto and cardizem now in NSR,HTN, HL, COPD not on home oxygen , Hx of CVA (2010) presented in emergency department for 2 episodes of witnessed syncope. He don't know exactly for how long they lasted, but he recovered fast. He denies of any loss of memory, weakness of any part of his body after this episode. no urine/bowel incontinence. no tongue bite. According to the patient his cousin was there when he had these episodes.Cousin said that there was just episode of black out, denies any fall, trauma, unusal body movements. MRI of brain was unremarkable Most likely syncope, possible from cardiac arrhythmia, less likely seizure Continue telemetry Consider cardaic monitoring EEG on Tuesday vs as outpatient No indicatino for seizure prophylaxis Recommendations: see above Consult Acknowledgment - Thank you for your consult request.
[2016-05-29 15:59] VITALS: BP 104/46
[2016-05-30 08:24] VITALS: BP 116/57
--- NOTE | 2016-05-30 08:27 | PN- Housestaff ---
JARROD HAHN,LENCHO 05/30/16 0827: Subjective Follow-up For: Multiple syncopal episodes Atrial Fibrilltion COPD BPH HTN HLD Complaints: no complaints Subjective: Patient is lying down comfortably in bed with no complaints. He is scheduled to get an EEG done tomorrow to r/o seizures as a cause of syncope at presentation. Review of Systems Constitutional: Reports: see HPI. Objective Last 24 Hrs of Vital Signs/I&O Vital Signs Date Time Temp Pulse Resp B/P Pulse O2 O2 Flow FiO2 Ox Delivery Rate 05/30 0824 97.7 64 18 116/57 94 Room Air 05/29 1600 Room Air 05/29 1559 98.3 65 104/46 94 Room Air 05/29 1031 118/58 05/29 0845 97.7 68 16 118/58 95 Room Air Intake & Output 05/30 1600 05/30 0800 05/30 0000 Intake Total 480 Output Total 900 250 Balance -900 230 Intake, Oral 480 Output, Urine 900 250 Physical Exam General Appearance: Alert, Oriented X3, Cooperative, No Acute Distress Cardiovascular: Regular Rate, Normal S1, Normal S2 Lungs: Clear to Auscultation, Normal Air Movement Abdomen: Normal Bowel Sounds, Soft, No Tenderness Neurological: Normal Speech, Normal Tone, Sensation Intact Extremities: No Edema Current Medications: Current Medications Sig/Vicki Start time Last Medication Dose Route Stop Time Status Admin Acetaminophen 650 MG .STK-MED ONE 05/29 1539 DC PO 05/29 1540 Acetaminophen 650 MG Q6P PRN 05/28 1430 AC 05/29 PO 1543 Atorvastatin Calcium 40 MG QPM 05/28 2200 AC 05/29 PO 2049 Calcium Carbonate 500 MG ONCE ONE 05/29 2345 DC 05/30 PO 05/29 2346 0033 Diltiazem HCl 240 MG DAILY 05/28 1430 AC 05/29 PO 1031 Finasteride 5 MG QPM 05/28 2200 AC 05/29 PO 2050 Rivaroxaban 15 MG QPM 05/28 2200 AC 05/29 PO 2049 Tamsulosin HCl 0.8 MG DAILY 05/29 1000 AC 05/29 PO 1031 Tiotropium [place] 1 PUF BID 05/28 2200 AC 05/29 INH 2050 Lines/Diet/Fluids Lines: peripheral lines Assessment/Plan Assessment: 81 y/o male with a PMH of 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 No urinary or bowel incontinence, involuntary movements, frothing, weakness or confusion noted. This is possibly secondary to arrhythmia considering no aura or post ictal events. He does have a more pronounced facial droop per family along with increased slurring of speech. Ischemic stroke will have to ruled out considering his history of CVA in the past. Also to consider, would be compliance with medications, as this episode, if a stroke, has occured on Xarelto. Problem List: * Syncope 2/2 arrhythmia vs ?? seizure * R/O Stroke considering increased slurring of speech and facial droop * Atrial Fibrillation on Cardizem and Xarelto * COPD not on home oxygen * BPH of Flomax and Finasteride * Hypertension * Hyperlipidemia on Atorvastatin Plan: * Continuous. Monitoring for any arrhythmias * orthostatics positive * Patient is scheduled to get an EEG done on Tuesday to r/o seizures. Neurology does not see any indication for seizure prophylaxis. * Seizure precautions * MRI not show any acute intracranial pathology * ECHO pending * Continue other home medications. * DVT PPx: Xarelto * Code Status: Full Code * Pain Pathway: Tylenol PRN. Problem List: 1. Syncope Pain Ratin Pain Location: None Pain Goal: Pain 4 or less Pain Plan: Per EMR Tomorrow's Labs & Rationales: Not required. DVT/Prophylaxis: pharmacological MARQUEZ OLIVAREZ MD 05/30/16 2002: Attending MD Review Statement Attending Statement Attending MD Statement: examined this patient, discuss w/resident/PA/SAND CASTER, agreed w/resident/PA/SAND CASTER, reviewed EMR data (avail) Attending Assessment/Plan: Admitted for witnessed syncope x2. Patient has no complaints today and feels well. He had no problem rising from a seated position and denies lightheadedness, chest pain, or palpitations. No tele events. MRI negative. Will follow up neurology and cardiology recommendations, follow up echocardiogram and telemetry, possible EEG Tuesday, PT eval, DVT PPx, continue home medications.
[2016-05-30 08:32] VITALS: BP 116/57
[2016-05-30 10:24] LABS: ABSOLUTE BASOPHIL COUNT 0 /CUMM (0.0-0.2); ABSOLUTE EOSINOPHIL COUNT 0.1 /CUMM (0.0-0.7); ABSOLUTE GRANULOCYTE CT 4.2 /CUMM (1.4-6.5); ABSOLUTE LYMPH COUNT 1.4 /CUMM (1.2-3.4); ABSOLUTE MONOCYTE COUNT 0.6 /CUMM (0.10-0.60); BASOPHIL % 0.5 % (0.0-2.0); GRANULOCYTE % 65.9 % (42.2-75.2); HEMATOCRIT 33.7 % (42-52); MEAN CORPUSCULAR HGB 29.2 PG (27.0-31.0); MEAN CORPUSCULAR HGB CONC 33.8 G/DL (33.0-37.0); MEAN CORPUSCULAR VOLUME 86.3 FL (80.0-94.0); MEAN PLATELET VOLUME 7.4 FL (7.4-10.4); PLATELET COUNT 164 /CUMM (130-400); RBC DISTRIBUTION WIDTH 15.4 % (11.5-14.5); WHITE BLOOD CELL COUNT 6.4 /CUMM (4.8-10.8)
--- NOTE | 2016-05-30 12:30 | NUR ---
DAUGHTER AT BEDSIDE REPORTS THAT AFTER SPEAKING TO HER FATHER SHE NOTICED SOME CHANGE IN SPEECH AND FORMING WORDS; CHANGE IN SPEECH NOTED-PATIENT HAD SOME PREVIOUS MILD SLURRED SPEECH NOW PATIENT IS HAVING SOME TROUBLE FORMING WORDS INTERMITTENTLY; NO OTHER DEFICITS NOTED; PATIENT ACKNOWLEDGES THAT HE IS HAVING TROUBLE WITH HIS WORDS; DR. LOPEZ NOTIFIED; 325MG ASA ADMINISTERED PER ORDER; DR. OLIVAREZ NOW AT BEDSIDE; WILL MONITOR
--- NOTE | 2016-05-30 15:49 | PN- Cardiology ---
Subjective Subjective: The patient seems to be doing well today. He denies any further episodes or symptoms. On the monitor, he has had rare ventricular ectopy but no other arrhythmias detected. Echocardiogram pending Objective Vital Signs and I&Os Vital Signs Date Time Temp Pulse Resp B/P Pulse O2 O2 Flow FiO2 Ox Delivery Rate 05/30 0935 116/57 05/30 0832 97.7 64 18 116/57 94 Room Air 05/30 0824 97.7 64 18 116/57 94 Room Air 05/29 1600 Room Air 05/29 1559 98.3 65 104/46 94 Room Air Intake & Output 05/30 1600 05/30 0800 05/30 0000 05/29 1600 05/29 0800 05/29 0000 Intake Total 720 480 480 100 610 Output Total 1000 900 250 400 300 Balance -280 -900 230 480 -300 310 Intake, IV 10 Intake, Oral 720 480 480 100 600 Output, Urine 1000 900 250 400 300 Patient 177 lb Weight Physical Exam: General Appearance Alert, Oriented X3, Cooperative, No Acute Distress, vital signs stable Skin normal HEENT normal Neck Supple, JVP normal, carotid upstroke 2+ bilaterally. No bruits. No masses. No thyromegaly. Cardiovascular Regular Rate, Normal S1, Normal S2 1/6 systolic murmur left sternal border Lungs scattered bilateral rhonchi Abdomen Soft, distended, bowel soundes positive Neurological slight left facial asymmetry, otherwise grossly nonfocal. Extremities No Clubbing, No Cyanosis, No Edema Vascular Normal Pulses, Pulses Symmetrical Current Medications: Current Medications Sig/Vicki Start time Last Medication Dose Route Stop Time Status Admin Acetaminophen 650 MG Q6P PRN 05/28 1430 AC 05/29 PO 1543 Aspirin 325 MG ONCE ONE 05/30 1230 DC 05/30 PO 05/30 1231 1228 Atorvastatin Calcium 40 MG QPM 05/280 AC 05/29 PO 2049 Calcium Carbonate 500 MG .STK-MED ONE 05/30 0028 DC PO 05/30 0029 Calcium Carbonate 500 MG ONCE ONE 05/29 2345 DC 05/30 PO 05/29 2346 0033 Diltiazem HCl 240 MG DAILY 05/28 1430 AC 05/30 PO 0935 Finasteride 5 MG QPM 05/28 2200 AC 05/29 PO 205 Rivaroxaban 15 MG QPM 05/28 220 AC 05/29 PO 204 Tamsulosin HCl 0.8 MG DAILY 05/29 1000 AC 05/30 PO 0935 Tiotropium [place] 1 PUF BID 05/28 2200 AC 05/30 INH 0935 Results Last 48 Hrs of Labs/Mics: Laboratory Tests 05/30/16 0845: Anion Gap 9, Estimated GFR > 60, BUN/Creatinine Ratio 22.7, CBC w Diff NO MAN DIFF REQ, RBC 3.90 L, MCV 86.3, MCH 29.2, RDW 15.4 H, MPV 7.4, Gran % 65.9, Lymphocytes % 22.5, Monocytes % 9.1, Eosinophils % 2.0, Basophils % 0.5, Absolute Granulocytes 4.2, Absolute Lymphocytes 1.4, Absolute Monocytes 0.6, Absolute Eosinophils 0.1, Absolute Basophils 0, PUBS MCHC 33.8 05/29/16 0730: Anion Gap 9, Estimated GFR > 60, BUN/Creatinine Ratio 23.6, CBC w Diff NO MAN DIFF REQ, RBC 3.85 L, MCV 87.0, MCH 29.2, RDW 15.2 H, MPV 7.5, Gran % 62.3, Lymphocytes % 27.0, Monocytes % 8.6, Eosinophils % 1.6, Basophils % 0.5, Absolute Granulocytes 4.2, Absolute Lymphocytes 1.8, Absolute Monocytes 0.6, Absolute Eosinophils 0.1, Absolute Basophils 0, PUBS MCHC 33.5 Assessment/Plan Assessment/Plan Assessment: 1. Several episodes of loss of consciousness; syncope versus seizure-by available history, there was no overt evidence of gross seizure activity. Possibilities would include: Orthostasis with associated syncope, vasovagal episodes with associated syncope, occult seizure activity, occult arrhythmias precipitating loss of consciousness 2. Paroxysmal atrial fibrillation on anticoagulant therapy 3. History of hypertension 4. Chronic obstructive pulmonary disease 5. Recent onset of headaches 6. Prior history of stroke/TIA. 7. Intermittent unifocal ventricular ectopy noted on monitor Recommendations: -Maintain patient on telemetry monitoring -Neurology input noted -Echocardiogram pending -Maintain present anticoagulation regimen -Continue current medications -The patient was noted to be orthostatic one time. His lying systolic blood pressure was 160 mmHg. On standing this drops to 110 mmHg. Following hydration this has not been noted since. -If stable, please ambulate the patient with monitoring of blood pressure, heart rate, oxygen saturation saturations, etc. -Possible eventual consideration for long-term event monitoring -EEG pending tomorrow. Continue telemetry? Yes
[2016-05-30 16:34] VITALS: BP 103/50
[2016-05-30 20:54] VITALS: BP 134/76
--- NOTE | 2016-05-30 21:03 | NUR ---
AT APPROX 2003, PT TACHY, APPEARS TO BE RAPID AFIB ON TELE STRIP. IN 130'S WHILE ASLEEP IN BED. BP 134/76, PT AWOKEN AND DENIES CP, SOB, HEART RACING, OR PALPITATIONS. NAD. MD MISTRY CALLED. EKG ORDERED. BY THE TIME EKG WAS DONE, PT NSR ON THE MONITOR HR 60S. WILL CTM.
[2016-05-30 22:37] VITALS: BP 124/52
--- NOTE | 2016-05-31 07:35 | PN- Housestaff ---
DARIAN HAHN,MANDA 05/31/16 0734: Subjective Follow-up For: Recurrent syncopal episodes Complaints: heaviness of the chest before sleeping subsided on its own. Tele-Events Since Last Visit: Episode of atrial flutter lasted for 5-[address] Slaughter, does not think it may be cause of syncopal episode Subjective: Patient is seen and examined at the bedside. He was sleeping comfortably. On waking up, he told that he slept well in the night. He does want help in walking around.He was having episodes of heaviness of the chest before sleeping, which lasted for 5-10 minutes. He is also complaining of headache in the right occipital/parietal area. He denies nausea, vomiting, problems with urination and bowel habits. Review of Systems Constitutional: Reports: no symptoms. Cardiovascular: Reports: chest pain. Denies: palpitations. Respiratory: Denies: cough, hemoptysis, orthopnea, short of breath. Gastrointestinal: Denies: abdominal pain, bloating, constipation. Genitourinary: Denies: dysuria. Musculoskeletal: Denies: back pain. Skin: Reports: rash (petechia on legs). Objective Last 24 Hrs of Vital Signs/I&O Vital Signs Date Time Temp Pulse Resp B/P Pulse O2 O2 Flow FiO2 Ox Delivery Rate 05/31 0000 Room Air 05/30 2237 98.1 67 24 124/52 94 Room Air 05/30 2054 131 134/76 05/30 1634 97.8 61 18 103/50 92 Room Air 05/30 0935 116/57 05/30 0832 97.7 64 18 116/57 94 Room Air 05/30 0824 97.7 64 18 116/57 94 Room Air Intake & Output 05/31 0800 05/31 0000 05/30 1600 Intake Total 200 240 720 Output Total 054 013 7185 Balance -250 90 -280 Intake, IV 0 Intake, Oral 200 240 720 Number 0 Bowel Movements Output, Urine 425 242 0454 Physical Exam General Appearance: Alert, Oriented X3, Cooperative, No Acute Distress Skin: petechiae on both legs HEENT: Atraumatic, PERRLA, EOMI Neck: Supple, No JVD Cardiovascular: irregular with murmurand Lungs: mild basilar crackles Abdomen: Soft, No Tenderness Neurological: slurring of speech, facial drooping on right side Extremities: No Clubbing, No Cyanosis, No Edema Assessment/Plan Assessment: Patient is an 81 year old male with a past medical history of atrial fibrillation on Xeralto and cardizem now in NSR,HTN, HL, COPD not on home oxygen , Hx of CVA (2010) presented in emergency department for 2 episodes of witnessed syncope. Problem List: * Syncope probably due to arrhythmia, doesnt seems to be seizures, no evidence of new ischemia on MRI. * Atrial Fibrillation on Cardizem and Xarelto * COPD not on home oxygen * BPH of Flomax and Finasteride * Hypertension * Hyperlipidemia on Atorvastatin MRI brain(05/28/16) - There is mild global parenchymal volume loss and numerous chronic small vessel ischemic changes throughout the periventricular white matter and koffi.No evidence of acute territorial infarct or hemorrhage. Assessment-according to the neurologist, syncopal episodes are most likely due to cardiac arrhythmia rather than seizures. We advised for EEG, which patient today. We don't think that the patient needs seizure prophylaxis. 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 Patient should be kept on telemetry monitoring for 24-48 hours. We'll maintain the patient on anticoagulation and all medication. As the orthostasis was positive. We'll continue to monitor orthostatic vitals. He may need Holter monitoring as an outpatient. Even yesterday orthostatic hypotension was positive. Today patient had episodes of atrial flutter without any symptoms in the night. Plan: * We'll continue telemetry monitoring for arrhythmia * orthostatics positive yesterday. * Today blood pressure is 130/78 on lying, 128/78 on setting, 120/66 on standing , doesn't seems to me as orthostasis. * Patient is scheduled to get an EEG today to r/o seizures. * We will follow echocardiogram * Continue other home medications. * DVT PPx: Xarelto * Code Status: Full Code Problem List: 1. Atrial fibrillation 2. COPD (chronic obstructive pulmonary disease) 3. Hypertension 4. Hyperlipidemia 5. BPH (benign prostatic hyperplasia) Pain Ratin Pain Location: chest Pain Goal: Remain pain free Pain Plan: mild to modertae Tomorrow's Labs & Rationales: none DVT/Prophylaxis: mechanical, pharmacological JADA HAHN,MARINE 05/31/16 1021: Attending MD Review Statement Attending Statement Attending MD Statement: examined this patient, discuss w/resident/PA/[employer] OVER[employer], agreed w/resident/PA/[employer]UL[employer], reviewed EMR data (avail), discussed with nursing, discussed with case mgmt Attending Assessment/Plan: MRI negative on Tuesday. Echo is pending. He is an 81-year-old with a history of A. fib on Xarelto, COPD, previous CVA with weakness on the left side was here with this episode of questionable syncope. At this point will follow-up with cardiology regarding the echo. He was significantly orthostatic and was hydrated and will follow-up orthostatics again today. He is on Cardizem 240 and had one episode of rapid A. fib.
[2016-05-31 08:01] VITALS: BP 142/70
[2016-05-31 09:18] VITALS: BP 128/76
[2016-05-31 10:15] VITALS: BP 116/62
--- NOTE | 2016-05-31 10:35 | NUR ---
1015 PT WENT INTO RAPID AFIB IN THE 150'S. VSS- BP 116/62, HR 128-150'S, O2 98% RA, RR 20. PT HAS NO C/O CP OR SOB. 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 [address] Madelin ELIAS IN WITH PT. PER DR ELIAS PT HAS A HX OF PAROXSYMAL AFIB. WILL CONTINUE TO MONITOR
--- NOTE | 2016-05-31 10:54 | ECHOCARDIOGRAM REPORT ---
DOLLY WIGGINS Age: 81 : 1935 Gender: M Exam Date: 05/30/2016 10:57 Exam Location: 1 [address] Ht (in): 63 Wt (lb): 177 BSA: 1.92 BP: 104 / 46 Ordering Physician: LENCHO GARAY MD Referring Physician: Deepthi Baig MD Technologist: Clarisa Tejeda [facility] Room Number: 180-01 Indications: AFIB/FLUTTER Rhythm: Technical Quality: Fair FINDINGS Left Ventricle Left ventricular cavity size normal. Normal left ventricular wall thickness. No obvious regional wall motion abnormalities. Left ventricular ejection fraction is estimated at 55 %. Right Ventricle Normal right ventricular size and function. Right Atrium Normal right atrial size. Left Atrium Mild left atrial dilatation. Mitral Valve Mild mitral annular calcification. No mitral stenosis. Trace mitral regurgitation. Aortic Valve Aortic sclerosis. No aortic stenosis. Trace to mild aortic regurgitation. Tricuspid Valve Structurally normal tricuspid valve. Mild tricuspid regurgitation. Right ventricular systolic pressure estimated at 36 mmHg. Pulmonic Valve Pulmonic valve not well visualized, grossly normal. Pericardium No pericardial effusion. Great Vessels Normal size aortic root. CONCLUSIONS Left ventricular cavity size normal. Normal left ventricular wall thickness. No obvious regional wall motion abnormalities. Left ventricular ejection fraction is estimated at 55 %. Normal right ventricular size and function. Mild left atrial dilatation. Aortic sclerosis. No aortic stenosis. Right ventricular systolic pressure estimated at 36 mmHg. Patric Alexis M.D. (Electronically Signed) Final Date: 31 May 2016 10:53 MEASUREMENTS (Male / Female) Normal Values 2D ECHO LV Diastolic Diameter PLAX 4.1 cm 4.2 - 5.9 / 3.9 - 5.3 cm LV Systolic Diameter PLAX 2.7 cm 2.1 - 4.0 cm LV Fractional Shortening PLAX 34.1 % 25 - 46 % LV Ejection Fraction 2D Teich 63.6 % IVS Diastolic Thickness 0.9 cm LVPW Diastolic Thickness 0.8 cm LV Relative Wall Thickness 0.4 RV Internal Dim ED PLAX 1.9 cm 1.9 - 3.8 cm LVOT Diameter 2.1 cm Aortic Root Diameter 3.2 cm LA Systolic Diameter LX 3.7 cm 3.0 - 4.0 / 2.7 - 3.8 cm LA Volume 38.0 cm 18 - 58 / 22 - 52 cm Ascending Aorta Diameter 3.5 cm DOPPLER AV Peak Velocity 160.0 cm/s AV Peak Gradient 10.2 mmHg AV Mean Velocity 113.0 cm/s AV Mean Gradient 6.0 mmHg AV Velocity Time Integral 36.3 cm LVOT Peak Velocity 132.0 cm/s LVOT Peak Gradient 7.0 mmHg LVOT Mean Velocity 90.7 cm/s LVOT Mean Gradient 4.0 mmHg LVOT Velocity Time Integral 29.9 cm LVOT Stroke Volume 103.6 cm AV Area Cont Eq vti 2.9 cm AV Area Cont Eq pk 2.9 cm MV Peak Velocity 107.0 cm/s MV Peak Gradient 4.6 mmHg MV Mean Velocity 53.1 cm/s MV Mean Gradient 1.0 mmHg Mitral E Point Velocity 78.5 cm/s Mitral A Point Velocity 88.4 cm/s Mitral E to A Ratio 0.9 MV PHT Velocity 82.5 cm/s MV Deceleration [place] 219.0 cm/s MV Pressure Half Time 113.0 ms MV Area PHT 1.9 cm MV Deceleration Time 296.0 ms TR Peak Velocity 278.0 cm/s TR Peak Gradient 30.9 mmHg Right Atrial Pressure 5.0 mmHg Pulmonary Artery Systolic Pressu 35.9 mmHg Right Ventricular Systolic Press 35.9 mmHg PV Peak Velocity 75.2 cm/s PV Peak Gradient 2.3 mmHg PV Mean Velocity 58.9 cm/s PV Mean Gradient 2.0 mmHg PV Velocity Time Integral 22.3 cm LV E' Lateral Velocity 9.5 cm/s Mitral E to LV E' Lateral Ratio 8.3 LV E' Septal Velocity 7.6 cm/s Mitral E to LV E' Septal Ratio 10.3
--- NOTE | 2016-05-31 11:41 | NUR ---
1140 PT BACK IN SINUS RHYTHM HR 60-70'S
--- NOTE | 2016-05-31 12:44 | PN- Cardiology ---
Subjective Subjective: Patient appears comfortable this morning. Denies dizziness or palpitations. Was walking with physical therapy, felt to likely need STR. Objective Vital Signs and I&Os Vital Signs Date Time Temp Pulse Resp B/P Pulse O2 O2 Flow FiO2 Ox Delivery Rate 05/31 1015 128 20 116/62 98 Room Air 05/31 0918 83 128/76 05/31 0914 83 128/76 05/31 0801 98.4 68 20 142/70 94 Room Air 05/31 0800 Room Air 05/31 0000 Room Air 05/30 2237 98.1 67 24 124/52 94 Room Air 05/30 2054 131 134/76 05/30 1634 97.8 61 18 103/50 92 Room Air Intake & Output 05/31 1600 05/31 0800 05/31 0000 05/30 1600 05/30 0800 05/30 0000 Intake Total 200 240 720 480 Output Total 915 005 8016 900 250 Balance -250 90 -280 -900 230 Intake, IV 0 Intake, Oral 200 240 720 480 Number 0 Bowel Movements Output, Urine 261 474 0184 900 250 Physical Exam: General: no apparent distress. Alert. Eyes: No obvious scleral icterus. HEENT: No jugular venous distention or abnormal jugular venous pulsations. Cardiovascular: Normal intensity S1/S2. Irregular. Respiratory: No rales or rhonchi. Abdomen: Soft, nontender with no guarding or rebound tenderness. Musculoskeletal: No clubbing or cyanosis noted, trace lower extremity edema Skin: Warm Neurologic: No gross focal deficits noted. Current Medications: Current Medications Sig/Vicki Start time Last Medication Dose Route Stop Time Status Admin Acetaminophen 650 MG Q6P PRN 05/28 1430 AC 05/31 PO 1031 Atorvastatin Calcium 40 MG QPM 05/28 2200 AC 05/30 PO 2004 Diltiazem HCl 360 MG DAILY 06/01 1000 AC PO Diltiazem HCl 120 MG ONCE ONE 05/31 1200 DC 05/31 PO 05/31 1201 1219 Diltiazem HCl 240 MG DAILY 05/28 1430 DC 05/31 PO 0914 Finasteride 5 MG QPM 05/28 2200 AC 05/30 PO 2003 Magnesium Oxide 400 MG ONE ONE 05/30 2145 DC 05/31 PO 05/30 2146 0005 Rivaroxaban 15 MG QPM 05/28 2200 AC 05/30 PO 2003 Tamsulosin HCl 0.8 MG DAILY 05/29 1000 AC 05/31 PO 0914 Tiotropium [place] 1 PUF BID 05/28 2200 AC 05/31 INH 0914 Results Last 48 Hrs of Labs/Mics: Laboratory Tests 05/31/16 0820: Anion Gap 8, Estimated GFR 58 L, BUN/Creatinine Ratio 19.2, Magnesium 1.8 05/30/16 0845: Anion Gap 9, Estimated GFR > 60, BUN/Creatinine Ratio 22.7, Phosphorus 3.3, Magnesium 1.7, CBC w Diff NO MAN DIFF REQ, RBC 3.90 L, MCV 86.3, MCH 29.2, RDW 15.4 H, MPV 7.4, Gran % 65.9, Lymphocytes % 22.5, Monocytes % 9.1, Eosinophils % 2.0, Basophils % 0.5, Absolute Granulocytes 4.2, Absolute Lymphocytes 1.4, Absolute Monocytes 0.6, Absolute Eosinophils 0.1, Absolute Basophils 0, PUBS MCHC 33.8 Recent Imaging Studies: Telemetry tracings were personally reviewed and showed sinus rhythm this morning with conversion to rapid atrial fibrillation around 10 AM Head MRI There is mild global parenchymal volume loss and numerous chronic small vessel ischemic changes throughout the periventricular white matter and koffi. No evidence of acute territorial infarct or hemorrhage. Echocardiogram Left ventricular cavity size normal. Normal left ventricular wall thickness. No obvious regional wall motion abnormalities. Left ventricular ejection fraction is estimated at 55 %. Normal right ventricular size and function. Mild left atrial dilatation. Aortic sclerosis. No aortic stenosis. Right ventricular systolic pressure estimated at 36 mmHg. Patric Alexis M.D. (Electronically Signed) Final Date: 31 May 2016 10:53 Assessment/Plan Assessment/Plan 1. Syncope of unclear etiology.Possibilities would include: Orthostasis with associated syncope, vasovagal episodes with associated syncope, occult seizure activity, occult arrhythmias precipitating loss of consciousness 2. Paroxysmal atrial fibrillation on anticoagulant therapy 3. History of hypertension 4. Chronic obstructive pulmonary disease 5. Recent onset of headaches 6. Prior history of stroke/TIA. The patient reports no symptoms today despite converting to rapid atrial fibrillation earlier. Discussed with Danelle Newby MD and we have increased his Cardizem to 360 mg by mouth daily with plan for monitoring blood pressure and orthostasis closely. Echocardiogram showed normal ventricular function with no obvious valvular abnormalities to precipitate syncope. Given the patient's history of continued paroxysmal atrial fibrillation with prior TIA he will be maintained on anticoagulation with maximal full precautions in place. He is scheduled for EEG later today. He will require additional arrhythmia monitoring as an outpatient after discharge. He will likely need STR based on PT evaluation. Gigi Alexis MD [facility] Continue telemetry? Yes
--- NOTE | 2016-05-31 12:56 | Discharge Summary ---
Visit Information Visit Dates Admission Date: 05/28/16 Discharge Date: 06/01/16 Hospital Course Course Attending Physician: JADA HAHN,MARINE Valiente Primary Care Physician: DOLLY EDMONDS MD Consulting Request: 1 Consulting Specialty: Cardiology Consulting Physician: Dr. Alexis Consulting Request: 2 Consulting Specialty: Neurology Consulting Physician: Dr. 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 Head CT done in the ED was negative for intracranial bleed. As the daughter had reported that the patient also had a more pronounced left facial droop and slurring of speech, the patient also had an MRI done, which did not show the presence of a new ischemic event. Physical Exam: Revealed a left sided facial droop with preserved motor strength and sensation. Vitals: WNL, EKG showed NSR at 86 bpm. Labs: Showed elevated creatinine 1.4 (b/l 1.2-1.5), Prolactin: 20.5, U/A: WNL Patient was admitted to the telemetry floor for further managment. Problem List: 1) Syncope 2/2 arrhythmia vs ?? seizure: Patient was admitted to the telemetry floor. Cardiology consult was placed. Patient was orthostatic positive, and this was thought to have contributed to the syncopal episode. He also had one episode of atrial fibrillation (was in sinus rhythm at the time of admission), but reverted back to sinus rhythm and this was not thought to be contributing to these episodes. Neurology consult was also placed to r/o seizures as a cause of syncope. EEG was done, please follow- up the results. We did speak to the neurologist said that we don't keep need to keep the patient here pending the results as the probability is extremely low that this was seizures but please follow-up official report. 2) R/O Stroke considering increased slurring of speech and facial droop: As there was a possibility of new ischemic stroke, at the time of admission, considering more pronounced facial droop and slurring of speech, per family, the patient underwent and MRI, which was negative for new ischemic stroke. 3) Atrial Fibrillation on Cardizem and Xarelto He was continued on Cardizem and Xarelto. On Day 3 of admission, he had one episode of atrial fibrillation (was in SR at the time of admission), but reverted to SR. Cardiology recommended the cardizem be increased to 360 mg PO QD (from 240 mg PO QD), with close monitoring of BP and orthostats. 4) COPD not on home oxygen: Patient was administered TRC and home Spiriva. 5) BPH: He was continued on his home Flomax and Finasteride. 6) Hyperlipidemia: Patient was continued on home Atorvastatin. 7) DVT PPx: Xarelto 8) Code Status: Full Code 9) Pain Pathway: Tylenol PRN. Complications: As above Allergies: Coded Allergies: NO KNOWN ALLERGIES (09/28/10) Significant Procedures: CT HEAD WO IV CONTRAST: SERVICE DATE: 05/28/16-1041 IMPRESSION: Chronic cerebral atrophy and chronic small vessel ischemic changes. No acute intracranial pathology compared to 09/28/2010. MRI-HEAD W/O MALLIKA: SERVICE DATE: 05/28/16: IMPRESSION: There is mild global parenchymal volume loss and numerous chronic small vessel ischemic changes throughout the periventricular white matter and koffi. No evidence of acute territorial infarct or hemorrhage. ECHOCARDIOGRAM: SERVICE DATE: 05/30/16: CONCLUSIONS: Left ventricular cavity size normal. Normal left ventricular wall thickness. No obvious regional wall motion abnormalities. Left ventricular ejection fraction is estimated at 55 %. Normal right ventricular size and function. Mild left atrial dilatation. Aortic sclerosis. No aortic stenosis. Right ventricular systolic pressure estimated at 36 mmHg. Pertinent Lab Results: Vital Signs Date Time Temp Pulse Resp B/P Pulse O2 O2 Flow FiO2 Ox Delivery Rate 05/31 1015 128 20 116/62 98 Room Air 05/31 0918 83 128/76 05/31 0914 83 128/76 05/31 0801 98.4 68 20 142/70 94 Room Air 05/31 0800 Room Air 05/31 0000 Room Air 05/30 2237 98.1 67 24 124/52 94 Room Air 05/30 2054 131 134/76 05/30 1634 97.8 61 18 103/50 92 Room Air 05/30 0935 116/57 05/30 0832 97.7 64 18 116/57 94 Room Air 05/30 0824 97.7 64 18 116/57 94 Room Air 05/29 1600 Room Air 05/29 1559 98.3 65 104/46 94 Room Air 05/29 1031 118/58 05/29 0845 97.7 68 16 118/58 95 Room Air 05/29 0000 96 Room Air 05/28 2348 97.6 85 20 130/84 95 Room Air 05/28 1930 Room Air 05/28 1730 97.5 79 20 176/84 96 Room Air 05/28 1038 97 Room Air Room Air 05/28 1037 97.1 97 20 119/59 97 Room Air Room Air Last 24 Hours I&Os 05/31 1600 05/31 0800 05/31 0000 Intake Total 200 240 Output Total 450 150 Balance -250 90 Intake, IV 0 Intake, Oral 200 240 Number 0 Bowel Movements Output, Urine 450 150 Laboratory Tests 05/31/16 0820: Anion Gap 8, Estimated GFR 58 L, BUN/Creatinine Ratio 19.2, Magnesium 1.8 Microbiology Date/Time Procedure - Status Source Growth 05/28 1256 Urine Culture - COMP URINE ROUT Orders Procedure Date/time Status MAGNESIUM 05/31 0809 Complete BASIC ELECTROLYTES PLUS BUN&CR 05/31 0809 Complete PT Evaluate & Treat 05/31 UNK Active Therapeutic Activities 05/31 UNK Complete Gait Training 05/31 UNK Complete MISTAKE 05/31 UNK Active ELECTROENCEPHALOGRAM 05/31 UNK Active Lab Add-on Test 05/30 205 Active EKG 05/30 2056 Active PHOSPHORUS 05/30 0845 Complete MAGNESIUM 05/30 0845 Complete CBC WITHOUT DIFFERENTIAL 05/30 0600 Complete BASIC ELECTROLYTES PLUS BUN&CR 05/30 0600 Complete MISSING MEDICATION FORM 05/30 UNK Active CBC WITHOUT DIFFERENTIAL 05/29 0600 Complete BASIC ELECTROLYTES PLUS BUN&CR 05/29 0600 Complete MISTAKE 05/29 UNK Complete Heart Healthy Diet 05/28 D Active Teach/Educate 05/28 1917 Active Nutritional Intake, Monitor 05/28 1917 Active Isolation 05/28 1917 Active Patient Care Conference 05/28 1917 Active Activity/Ambulation 05/28 1917 Active Pathway - chart 05/28 1429 Active Patient Data 05/28 1429 Active Code Status 05/28 1429 Active Patient Data 05/28 1331 Active Admit to inpatient 05/28 1327 Active Vital Signs 05/28 1327 Active Code Status 05/28 1327 Complete Intake & Output 05/28 1054 Active House Staff 05/28 UNK Active VTE Mechanical Prophylaxis 05/28 UNK Active Vital Signs 05/28 UNK Active MISTAKE 05/28 UNK Complete Telemetry/District Court Judge 05/28 UNK Active Seizure Precautions 05/28 UNK Active CMS- Neurovascular Checks 05/28 UNK Active Disposition Summary Disposition Principal Diagnosis: Syncope (unknown etiology) Additional Diagnosis: * Atrial Fibrillation on Cardizem and Xarelto * COPD not on home oxygen * BPH of Flomax and Finasteride * Hypertension * Hyperlipidemia on Atorvastatin Discharge Disposition: SNF Discharge Instructions General Discharge Information Code Status: Full Code Patient's Diet: Heart Healthy Patient's Activity: As tolerated Follow-Up Instructions/Appts: Please make an appointment to see: 1) Your PCP within one week from discharge. 2) Your ergonomic specialist within one week from discharge. 3) Your Neurologist within one week from discharge. 4) please follow-up official report of EEG. Medications at Discharge Discharge Medications: Stop taking the following medications: Diltiazem HCl (Cardizem Cd) 240 MG CAP.ER.24H ORAL DAILY Qty = 90 Continue taking these medications: Pantoprazole Sodium (Pantoprazole Sodium) 40 MG TABLET.DR 1 ORAL DAILY @8 AM Qty = 30 Comments: NOT GIVEN IN HOSPITAL Tiotropium [place] (Spiriva) 18 MCG CAP.W.DEV 1 Microgram INHALATION TWICE DAILY Qty = 30 Comments: Last Taken: 06/01/16 Time: 9AM Rivaroxaban (Xarelto) 15 MG TABLET 1 Tablet ORAL Every night Qty = 30 Comments: Last Taken: 05/31/16 Time: 9PM Finasteride (Finasteride) 5 MG TABLET 1 Tablet ORAL Every night Qty = 90 Comments: Last Taken: 05/31/16 Time: 9PM Atorvastatin Calcium (Atorvastatin Calcium) 40 MG TABLET 1 Tablet ORAL Every night Qty = 90 Comments: Last Taken: 05/31/16 Time: 9PM Tamsulosin HCl (Tamsulosin HCl) 0.4 MG CAP.ER.24H 2 Capsule ORAL DAILY Qty = 180 Comments: Last Taken: 06/01/16 Time: 9AM Start taking the following new medications: Diltiazem HCl (Cardizem Cd) 360 MG CAP.ER.24H 1 Capsule ORAL DAILY Qty = 30 No Refills Comments: Last Taken: 06/01/16 Time: 9AM Copies To: KAIA HAHN,RAFY ALEXIS MD,SHANKAR; KENDAL HAHN,DOLLY Montgomery
--- NOTE | 2016-05-31 13:19 | Patient Discharge Instructions ---
Discharge Instructions General Discharge Information You were seen/treated for: Syncope Atrial Fibrillation Special Instructions: Please make an appointment to see: 1) Your PCP within one week from discharge 2) Your copy coordinator within one week from discharge. Diet Recommended Diet: Heart Healthy Activity Activity Self Limited: Yes Acute Coronary Syndrome Inclusion Criteria At DC or during hospital stay patient has or had the following: ACS DIAGNOSIS No Discharge Core Measures Meds if any: Prescribed or Continued at Discharge Meds if any: NOT Prescribed or Continued at Discharge Congestive Heart Failure Inclusion Criteria At DC or during hospital stay patient has or had the following: CHF DIAGNOSIS No Discharge Core Measures Meds if any: Prescribed or Continued at Discharge Meds if any: NOT Prescribed or Continued at Discharge Cerebrovascular accident Inclusion Criteria At DC or during hospital stay patient has or had the following: CVA/TIA Diagnosis No Discharge Core Measures Meds if any: Prescribed or Continued at Discharge Meds if any: NOT Prescribed or Continued at Discharge Venous thromboembolism Inclusion Criteria VTE Diagnosis No VTE Type NONE VTE Confirmed by (Test) NONE Discharge Core Measures - Per Current guidelines, there needs to be overlap - treatment for the first 5 days of Warfarin therapy. - If discharged on Warfarin prior to 5 days of - overlap therapy, the patient will need to be - assessed for post discharge needs including - *Post discharge parental anticoagulation - *Warfarin and/or parental anticoagulation education - *Follow up date to check INR post discharge At least 5 days overlap therapy as Inpatient No Meds if any: Prescribed or Continued at Discharge Note: Overlap Therapy is Warfarin and Anticoagulant Meds if any: NOT Prescribed or Continued at Discharge
[2016-05-31] MEDS ORDERED: CARDIZEM CD120 M2 PO (13:31)
[2016-05-31 16:23] VITALS: BP 130/63
[2016-05-31 22:26] VITALS: BP 118/60
[2016-06-01 00:06] VITALS: BP 142/70
--- NOTE | 2016-06-01 07:16 | PN- Housestaff ---
DARIAN HAHN,MANDA 06/01/16 0716: Subjective Follow-up For: Recurrent syncopal episodes probably secondary to orthostatic hypotension Complaints: Dry cough Tele-Events Since Last Visit: No any overnight cardiac event, couple of PVCs Subjective: She is seen and examined the bedside. He was complaining of dry cough. otherwise he is much better Review of Systems Constitutional: Denies: malaise, weakness. EENTM: Reports: no symptoms. Cardiovascular: Denies: chest pain, edema, orthopena, palpitations. Respiratory: Reports: cough. Denies: hemoptysis, orthopnea, short of breath, sputum production. Gastrointestinal: Denies: abdominal pain, bloating, constipation, diarrhea, distention. Genitourinary: Denies: discharge, dysuria, frequency, hematuria. Musculoskeletal: Denies: back pain, gout, joint pain, joint swelling. Skin: Denies: no symptoms. Neurological/Psychological: Reports: anxiety. Denies: ataxia, cognitive dysfunction, confusion, depressed, dementia. Objective Last 24 Hrs of Vital Signs/I&O Vital Signs Date Time Temp Pulse Resp B/P Pulse O2 O2 Flow FiO2 Ox Delivery Rate 06/01 0953 98.1 74 18 130/62 06/01 0933 74 130/62 06/01 0843 98.1 74 18 130/62 93 Room Air 06/01 0800 Room Air 06/01 0006 98.3 64 18 142/70 94 Room Air 06/01 0000 94 Room Air 05/31 2226 97.8 70 20 118/60 94 Room Air Intake & Output 06/01 1600 06/01 0800 06/01 0000 Intake Total 240 100 480 Output Total 300 600 200 Balance -60 -500 280 Intake, Oral 240 100 480 Output, Urine 300 600 200 Physical Exam General Appearance: Alert, Oriented X3, Cooperative Skin: No Rashes, No Breakdown HEENT: Atraumatic, PERRLA, EOMI Neck: Supple, No JVD Cardiovascular: Normal S1, Normal S2 Lungs: bilateral mild basal crackles Abdomen: Soft, No Tenderness, distended Neurological: slurred speech Extremities: No Clubbing, No Cyanosis, No Edema Vascular: Normal Pulses, Pulses Symmetrical Assessment/Plan Assessment: Patient is an 81 year old male with a past medical history of atrial fibrillation on Xeralto and cardizem now in NSR,HTN, HL, COPD not on home oxygen , Hx of CVA (2010) presented in emergency department for 2 episodes of witnessed syncope. Problem List: * Syncope probably due to orthostatic hypotension, doesnt seems to be arrhythmia,seizures, no evidence of new ischemia on MRI. * Atrial Fibrillation on Cardizem and Xarelto * COPD not on home oxygen * BPH of Flomax and Finasteride * Hypertension * Hyperlipidemia on Atorvastatin MRI brain(05/28/16) - There is mild global parenchymal volume loss and numerous chronic small vessel ischemic changes throughout the periventricular white matter and koffi.No evidence of acute territorial infarct or hemorrhage. Assessment-according to the neurologist, syncopal episodes are most likely due to cardiac arrhythmia rather than seizures. We advised for EEG, which patient today. We don't think that the patient needs seizure prophylaxis. According to the account leader. Patient should be kept on telemetry monitoring for 24-48 hours. We'll maintain the patient on anticoagulation and all medication. As the orthostasis was positive. We'll continue to monitor orthostatic vitals. He may need Holter monitoring as an outpatient. Even yesterday orthostatic hypotension was positive. Today patient had episodes of atrial flutter without any symptoms in the night. Plan: * Discharge today * No orthostasis. * EEG doesn't show any seizure activity * Echocardiogram showed LVEF 55% * Continue other home medications. * DVT PPx: Xarelto * Code Status: Full Code Problem List: 1. BPH (benign prostatic hyperplasia) 2. Hyperlipidemia 3. Hypertension 4. COPD (chronic obstructive pulmonary disease) 5. Atrial fibrillation 6. Syncope Pain Ratin Pain Location: left hip Pain Goal: Remain pain free Pain Plan: mild Tomorrow's Labs & Rationales: nothing DVT/Prophylaxis: mechanical Consulting Request: Consulting Specialty: Neurology Consulting Physician: Dr. Leila ELIAS MD,MARINE 06/01/16 1102: Attending MD Review Statement Attending Statement Attending MD Statement: examined this patient, discuss w/resident/PA/BUSINESS DEVELOPMENT, agreed w/resident/PA/BUSINESS DEVELOPMENT, reviewed EMR data (avail), discussed with nursing, discussed with case mgmt, reviewed images Attending Assessment/Plan: Pt is doing okay on the higher dose of Cardizem. His rate is okay and he is not orthostatic. I spoke to Dr. Mcneill and we are going to discharge him on the current dose of Cardizem with outpatient follow-up. His EEG was read by Dr. Yañez is negative. His MRI is also negative. His syncope was probably secondary to orthostatic hypotension and a ?burst of rapid A. fib. They going to follow him closely
[2016-06-01 08:43] VITALS: BP 130/62
--- NOTE | 2016-06-01 09:43 | PN- Cardiology ---
Subjective Subjective: Patient states he feels much better. He is anxious for discharge. He does complain of a cough. He states it is chronic. Review of Systems: Eyes no blurred or double vision Ears no deafness or ringing Nose and throat no recurrent sinusitis Lungs per history of present illness Heart per history of present illness Abdomen no nausea vomiting Musculoskeletal occasional muscle and joint pains Psych no anxiety or depression Neuro without recurrent headache or seizures Endocrine no heat or cold intolerance Objective Vital Signs and I&Os Vital Signs Date Time Temp Pulse Resp B/P Pulse O2 O2 Flow FiO2 Ox Delivery Rate 06/01 0933 74 130/62 06/01 0843 98.1 74 18 130/62 93 Room Air 06/01 0800 Room Air 06/01 0006 98.3 64 18 142/70 94 Room Air 06/01 0000 94 Room Air 05/31 2226 97.8 70 20 118/60 94 Room Air 05/31 1623 97.7 68 18 130/63 95 05/31 1414 Room Air Room Air 05/31 1304 Room Air Room Air 05/31 1015 128 20 116/62 98 Room Air Intake & Output 06/01 1600 06/01 0800 06/01 0000 05/31 1600 05/31 0800 05/31 0000 Intake Total 434 099 5113 200 240 Output Total 600 200 350 450 150 Balance -500 280 790 -250 90 Intake, IV 0 Intake, Oral 537 437 7886 200 240 Number 0 Bowel Movements Output, Urine 600 200 350 450 150 Physical Exam: Patient is a well-developed well-nourished male appearing in no acute distress HEENT is unremarkable Neck is supple there is no JVD Lungs rhonchi Bilaterally that clear posttussive Heart regular rhythm S1 and S2 are normal no murmurs gallops or rubs Abdomen bowel sounds positive Extremities without edema Current Medications: Current Medications Sig/Vicki Start time Last Medication Dose Route Stop Time Status Admin Acetaminophen 650 MG .STK-MED ONE 05/31 1028 DC PO 05/31 1029 Acetaminophen 650 MG Q6P PRN 05/28 1430 AC 05/31 PO 1031 Albuterol Sulfate 2 PUF Q4 PRN 05/31 2130 AC INH Atorvastatin Calcium 40 MG QPM 05/28 2200 AC 05/31 PO 2042 Calcium Carbonate 500 MG ONCE ONE 05/31 2330 DC 05/31 PO 05/31 2330 2332 Diltiazem HCl 360 MG DAILY 06/01 1000 AC 06/01 PO 0933 Diltiazem HCl 120 MG ONCE ONE 05/31 1200 DC 05/31 PO 05/31 1201 1219 Diltiazem HCl 240 MG DAILY 05/28 1430 DC 05/31 PO 0914 Finasteride 5 MG QPM 05/28 2200 AC 05/31 PO 2042 Rivaroxaban 15 MG QPM 05/28 2200 AC 05/31 PO 2042 Tamsulosin HCl 0.8 MG DAILY 05/29 1000 AC 06/01 PO 0933 Tiotropium [place] 1 PUF BID 05/28 2200 AC 06/01 INH 0933 Results Last 48 Hrs of Labs/Mics: Laboratory Tests 05/31/16 0820: Anion Gap 8, Estimated GFR 58 L, BUN/Creatinine Ratio 19.2, Magnesium 1.8 Telemetry personally reviewed atrial fibrillation to sinus rhythm Recent Imaging Studies: Echocardiogram CONCLUSIONS Left ventricular cavity size normal. Normal left ventricular wall thickness. No obvious regional wall motion abnormalities. Left ventricular ejection fraction is estimated at 55 %. Normal right ventricular size and function. Mild left atrial dilatation. Aortic sclerosis. No aortic stenosis. Right ventricular systolic pressure estimated at 36 mmHg. Patric Alexis M.D. Assessment/Plan Assessment/Plan 1. Syncope of unclear etiology.Possibilities would include: Orthostasis with associated syncope, vasovagal episodes with associated syncope, occult seizure activity, occult arrhythmias precipitating loss of consciousness 2. Paroxysmal atrial fibrillation on anticoagulant therapy currently in sinus rhythm 3. History of hypertension 4. Chronic obstructive pulmonary disease 5. Recent onset of headaches 6. Prior history of stroke/TIA. Recommendations 1. Continue Cardizem at 360 mg daily 2. Patient will require a Holter monitor as an outpatient 3. Continue Xarelto for stroke prevention 4. Plan is for possible discharge today to short-term rehabilitation Continue telemetry? No
[2016-06-01] MEDS ORDERED: CARDIZEM CD360 M1 PO (09:49)
[2016-06-01 09:53] VITALS: BP 130/62
--- NOTE | 2016-06-01 10:36 | ELECTROENCEPHALOGRAM REPORT ---
Electroencephalogram Report ELECTROENCEPHALOGRAM RESULTS Date of service: 05/31/16 Ordering Provider: Steffanie Yan MD TELECOM ANALYST: LO Mason EEG NUMBER: [id number] TEST UTILIZES: 10-20 system, 21-lead 18 channel digital EEG recording PERTINENT HX/PHYSICAL/NEURO FINDINGS/CLINICAL DIA-year-old patient being evaluated for syncope versus seizure MEDICATIONS: Tamsulosin riveroxaban tiotropium finasteride atorvastatin diltiazem aspirin INTERPRETATION: The background is composed of moderate amplitude posterior 9-10 Hz alpha which attenuates on eye opening. Low voltage faster beta activity is intermixed and seen best in the frontal regions. Much of the recording reflects drowsiness with irregular alpha and intermixed slower rhythms in the theta range. There are no focal, lateralized or epileptiform abnormalities. Hyperventilation deferred, photic stimulation was performed and adds no additional information IMPRESSION: Normal for a drowsy patient. No epileptiform abnormalities.
== END 2016-06-01 12:40 | DRG 312 ==
LOC: ENRESERVDT → ENRESERVTM → CANRESERV → ERH 10:20 → 1NO 13:27 → ENPENDDIS 13:27 → ERHI 13:27 → 1NO 14:56
PROVIDERS: Internal Medicine; Physician Assistant; Student in an Organized Health Care Education/Training Program; ADMIT Internal Medicine
DX: I95.1 Orthostatic hypotension (principal); Z99.81 Dependence on supplemental oxygen; S06.9X0S Unspecified intracranial injury without loss of consciousness, sequela; I48.0 Paroxysmal atrial fibrillation; J44.9 Chronic obstructive pulmonary disease, unspecified; I48.91 Unspecified atrial fibrillation; I10 Essential (primary) hypertension; N40.0 Benign prostatic hyperplasia without lower urinary tract symptoms; R29.810 Facial weakness; E78.5 Hyperlipidemia, unspecified; F10.21 Alcohol dependence, in remission; I69.392 Facial weakness following cerebral infarction; Z79.01 Long term (current) use of anticoagulants
CPT/HCPCS: 1NSP; 70551; 81003; 82436; 87086; 93005; 93010; 93306; 95816; 96360; 97116-GO; 97530-GO; J3490

== ENCOUNTER → 2017-06-22 | Day surgery (SDC) | payer OTHER, MEDICARE ==
[~2017-06-22] VITALS: Ht 160 cm; Wt 80.7 kg
[~2017-06-22] MED LIST changes: +ATORVASTATIN CA40 M1 PO; +CARDIZEM CD120 M2 PO; +CARDIZEM CD240 M1 PO; +CARDIZEM CD360 M1 PO; +FINASTERIDE5 M1 PO; +TAMSULOSIN HCL0.4 M1 PO; +XARELTO15 M2 PO
--- NOTE | 2017-06-22 10:15 | Operative Report ---
Operative/Inv Procedure Report Surgery Date: 06/22/17 Name of Procedure: Cataract extraction lens implantation left eye Pre-Operative Diagnosis: Age related cataract left eye 20/60 vision Post-Operative Diagnosis: Same Estimated Blood Loss: none Surgeon/Harness Cutter: Ovidio HAHN,Tyler Kurtz Anesthesia: local monitored anesthesi Complications: None Operative/Procedure Note Note: The patient was brought to the operating room standard monitoring equipment was attached the patient was prepped and draped in the usual fashion for intraocular surgery. A lid speculum was placed to retract the lids. The case was begun by making [2] partial-thickness corneal relaxing [incisions] at 170. A temporal incision with a 2.4 mm keratome. The eye was stabilized with a Srivastava ring during this incision. 1 mL of non-preserved lidocaine was introduced into the anterior chamber to provide anesthesia. The anterior chamber was then filled and deepened with viscoelastic. A curvilinear capsulorrhexis was achieved using a 30-gauge needle and is a cystotome and capsulorrhexis was finished using a Utrata forceps. A second or paracentesis incision was made temporally with a 1 mm MVR blade. The lens was then hydrodissected with balanced salt solution and found to be rotatable. The lens was emulsified using phacoemulsification and a modified four-quadrant cracking technique. The residual cortical material was removed using automated irrigation and aspiration and as much of the anterior capsular rim was cleaned as well as possible. The posterior capsule was cleaned first with the automated machine on a low setting and then manually with a Elliot squeegee. The capsular bag was deepened with viscoelastic. The lens a SA60 WF 22.0 Diopter placed into the bag under direct visualization and rotated so that the haptics were at 12 and 6:00. Viscoelastic was then removed from the eye by flushing it out and then by automated irrigation and aspiration. The eye was pressurized to a normal tone. 1/10 of a cc of cefuroxime solution was introduced into the anterior chamber to provide antibiotic prophylaxis. The wounds were sealed by hydrating the stroma adjacent to them and the eye was left at a proper tone after the wounds were checked and found not to be leaking. The lid speculum was removed from the orbit. Antibiotic and steroid drops were placed on the eye and then the eye was shielded. Monitoring equipment was removed from the patient and the patient was removed from the operative suite to the holding area. The patient tolerated the procedure well and will be seen in the office tomorrow.
== END ==
LOC: STS 02:34
DX: H25.9 Unspecified age-related cataract (principal); J44.9 Chronic obstructive pulmonary disease, unspecified; Z86.73 Personal history of transient ischemic attack (TIA), and cerebral infarction without residual deficits; Z79.01 Long term (current) use of anticoagulants; Z95.0 Presence of cardiac pacemaker
CPT/HCPCS: J2250; V2632